=== PATIENT | female | born 1975 | race Caucasian/White ===

== ENCOUNTER 2016-09-21 07:56 | Emergency (ER) | payer BC ==
--- NOTE | 2016-09-21 08:43 | ER Document Report ---
ED General - General Mode of Arrival: Ambulatory Information source: Patient TRAVEL OUTSIDE OF THE [place] IN LAST 30 DAYS: No - HPI Patient complains to provider of: swelling Associated symptoms: Other - See above <PRANEETH LEVY - Last Filed: 09/21/16 09:40> <SARAH VIDES - Last Filed: 09/21/16 20:14> - General Chief Complaint: Feet Swelling Stated Complaint: swelling of feet Time Seen by Provider: 09/21/16 08:18 Notes: Patient is a 40-year-old female, with past medical history including diabetes, who presents to the emergency department complaining of swelling in her feet onset 2 days ago. Patient reports she's been retaining fluid in her feet hands and legs for the past couple days and reports that she has been eating more salt than usual and indulged last night in a very salty meal. Patient states she's been feeling nauseated since then, and also has had shortness of breath with exertion starting this morning. Patient reports she is on her feet most of the day. Patient has no primary care physician (PRANEETH LEVY) - Related Data Allergies/Adverse Reactions: Potassium Clavulanate * [From Augmentin] Allergy (Severe, Verified 09/21/16 08: 00) n and v amoxicillin trihydrate [From Augmentin] Allergy (Verified 09/21/16 08:00) n and v etodolac [From Lodine] Adverse Reaction (Verified 09/21/16 08:00) rash levofloxacin [From Levaquin] Adverse Reaction (Verified 09/21/16 08:00) abd pain nitrofurantoin [From Macrobid] Adverse Reaction (Verified 09/21/16 08:00) chest tight sulfamethoxazole [From Bactrim] Adverse Reaction (Verified 09/21/16 08:00) rash trimethoprim [From Bactrim] Adverse Reaction (Verified 09/21/16 08:00) rash Home Medications: Current Home Medications Multivit-Min/Iron Fum/Folic AC [Raizv-Kcajszu-Qvaylxpy Tablet] 1 each PO DAILY 09/21/16 [History] Past Medical History - General Information source: Patient - Social History Smoking Status: Current Every Day Smoker Frequency of alcohol use: None Drug Abuse: None Family History: Reviewed & Not Pertinent, CVA, DM, Hyperlipidemia, Hypertension , Malignancy, Thyroid Disfunction Patient has suicidal ideation: No Patient has homicidal ideation: No Pulmonary Medical History: Reports: Hx Asthma - inhalers Endocrine Medical History: Reports: Hx Diabetes Mellitus Type 2 - Diet controlled Renal/ Medical History: Reports: Hx Ovarian Cysts Psychiatric Medical History: Reports: Hx Bipolar Disorder Past Surgical History: Reports: Hx Abdominal Surgery, Hx Appendectomy, Hx Gynecologic Surgery - left ovary removed., Hx Hysterectomy - 2015, Hx Oral Surgery, Hx Orthopedic Surgery - LEFT KNEE SURGERY, Hx Tonsillectomy - Immunizations Immunizations up to date: Yes Hx Diphtheria, Pertussis, Tetanus Vaccination: Yes <PRANEETH LEVY - Last Filed: 09/21/16 09:40> Review of Systems - Review of Systems Constitutional: No symptoms reported EENT: No symptoms reported Cardiovascular: No symptoms reported Respiratory: See HPI, Short of breath Gastrointestinal: See HPI, Nausea Genitourinary: No symptoms reported Female Genitourinary: No symptoms reported Musculoskeletal: See HPI, Ankle swelling Skin: No symptoms reported Hematologic/Lymphatic: No symptoms reported Neurological/Psychological: No symptoms reported -: Yes All other systems reviewed and negative <PRANEETH LEVY - Last Filed: 09/21/16 09:40> Physical Exam - Vital signs Interpretation: Normal - General General appearance: Appears well, Alert - HEENT Head: Normocephalic, Atraumatic - Respiratory Respiratory status: No respiratory distress Chest status: Nontender Breath sounds: Normal Chest palpation: Normal - Cardiovascular Rhythm: Regular Heart sounds: Normal auscultation Murmur: No - Abdominal Inspection: Normal Distension: No distension Bowel sounds: Normal Tenderness: Nontender Organomegaly: No organomegaly - Extremities General upper extremity: Normal inspection General lower extremity: Normal inspection. No: Edema - Neurological Neuro grossly intact: Yes Cognition: Normal Orientation: AAOx4 [place] Coma Scale Eye Opening: Spontaneous [place] Coma Scale Verbal: Oriented [place] Coma Scale Motor: Obeys Commands [place] Coma Scale Total: 15 Speech: Normal - Psychological Associated symptoms: Normal affect, Normal mood - Skin Skin Temperature: Warm Skin Moisture: Dry Skin Color: Normal <PRANEETH LEVY - Last Filed: 09/21/16 09:40> Course - Laboratory Result Diagrams: 09/21/16 08:55 <PRANEETH LEVY - Last Filed: 09/21/16 09:40> - Laboratory Result Diagrams: 09/21/16 08:55 <SARAH VIDES - Last Filed: 09/21/16 20:14> - Re-evaluation Re-evalutation: 09/21/16 20:13 the patient presents to the emergency department with the chief complaint of swelling to her lower feet. she says this happens to her when she's on her feet a lot and need the high sodium meal which she did last evening. she dies any chest pain shortness of breath vomiting and dull pain diarrhea fever chills or change of appetite. on examination she is well appearing on toxic with mild swelling of her feet no peripheral edema calf tenderness swelling or cellulitis. negative acute ekg ,chest x-ray and laboratory evaluation including no congestive heart failure or renal insufficiency. patient will be discharged home follow low-sodium diet hydration leg elevation follow up with her primary care physician and discuss reasons for ed return sooner (SARAH VIDES) - Vital Signs Vital signs: Temp Pulse Resp BP Pulse Ox 98.2 F 78 18 106/61 98 09/21/16 10:43 09/21/16 10:43 09/21/16 10:43 09/21/16 10:43 09/21/16 10:43 Discharge <PRANEETH LEVY - Last Filed: 09/21/16 09:40> <SARAH VIDES - Last Filed: 09/21/16 20:14> - Discharge Clinical Impression: peripheral edema Condition: Stable Disposition: HOME, SELF-CARE Additional Instructions: Edema, Peripheral You have swelling in your legs. This is called peripheral edema. It can be caused by "leaky capillaries," inflammation, disease of the leg veins, or excess salt and water in your body. Edema may be a sign of heart, kidney, or liver disease. A medical evaluation can determine if there is a serious underlying cause for your edema. Avoid prolonged standing. If you must sit for a long time, occasionally get up and walk around or elevate your legs. Support stockings can be helpful in limiting swelling. Often diuretic or water pills are used to remove excess salt and water from your body. Call the doctor or return if you develop increased swelling, pain, or redness, shortness of breath, chest pain, or any other significant change. Forms: Return to Work Referrals: [facility] [Provider Group] - Follow up in 3-5 days (Call for appointment to be seen in follow-up in 3-4 days return for increasing worsening or new symptoms) Scribe Attestation: 09/21/16 10:53 I personally performed the services described in the documentation reviewed the documentation recorded by my scribe in my presence and it accurately and completely records my words and actions (SARAH VIDES) Scribe Documentation - Scribe Written by Scribe:: luann Dutta, 09/21/16, 0944 acting as scribe for :: Abdias <PRANEETH LEVY - Last Filed: 09/21/16 09:40>
[2016-09-21 08:49] LABS: APPEARANCE,URINE CLEAR; BILIRUBIN,URINE NEGATIVE (NEGATIVE); GLUCOSE, URINE NEGATIVE (NEGATIVE); KETONES,URINE NEGATIVE (NEGATIVE); LEUKOCYTE ESTERASE,URINE NEGATIVE (NEGATIVE); NITRITE,URINE NEGATIVE (NEGATIVE); PROTEIN,URINE NEGATIVE (NEGATIVE); URINE SPECIFIC GRAVITY 1.008; UROBILINOGEN,URINE NEGATIVE mg/dL (<2.0)
[2016-09-21 09:28] LABS: ANION GAP 10 (5-19); BLOOD UREA NITROGEN 18 mg/dL (7-20); CALCIUM 9.8 mg/dL (8.4-10.2); CARBON DIOXIDE 27 mmol/L (22-30); CHLORIDE 104 mmol/L (98-107); CREATININE RESULT 0.76 mg/dL (0.52-1.25); GLUCOSE 107 mg/dL (75-110); POTASSIUM 4.6 mmol/L (3.6-5.0); SODIUM 140.8 mmol/L (137-145)
[2016-09-21 10:44] VITALS: BP 106/61
== END 2016-09-21 11:04 | disposition home or self-care (01) ==
LOC: ER 07:56
DX: R60.9 Edema, unspecified (principal); R11.0 Nausea; R06.02 Shortness of breath; F17.200 Nicotine dependence, unspecified, uncomplicated; E11.9 Type 2 diabetes mellitus without complications; Z90.710 Acquired absence of both cervix and uterus; Z88.3 Allergy status to other anti-infective agents
CPT/HCPCS: 36415; 71010; 80048; 81001; 81025; 83880; 99283

== ENCOUNTER 2016-11-21 13:22 | Emergency (ER) | payer BC ==
[2016-11-21] MEDS ORDERED: NORMAL SALINE 1000 ML 1,000 ML IV ONE (14:14)
[2016-11-21] MEDS ORDERED: METHYLPREDNISOLONE INJ 125 MG/2 ML SDV IV ONE (14:14)
[2016-11-21] MEDS ORDERED: FAMOTIDINE INJ/PF 20 MG/2 ML SDV IV ONE (14:14)
[2016-11-21] MEDS ORDERED: DIPHENHYDRAMINE HCL 50 MG/ML VIAL IV ONE (14:14)
--- NOTE | 2016-11-21 14:17 | ER Document Report ---
ED Medical Screen (RME) - General Chief Complaint: Allergic Reaction Stated Complaint: POSSIBLE ALLERGIC REACTION Time Seen by Provider: 11/21/16 14:14 Mode of Arrival: Ambulatory Information source: Patient TRAVEL OUTSIDE OF THE [place] IN LAST 30 DAYS: No - HPI Patient complains to provider of: allergic reaction Onset: Just prior to arrival - Pt. was stung on index finger by wasp 1-2 hrs. ago -- has allergy to insect bites -- c/o abdomina cramps, weakness. No rash, SOB - Related Data Allergies/Adverse Reactions: Potassium Clavulanate * [From Augmentin] Allergy (Severe, Verified 11/21/16 13: 25) n and v amoxicillin trihydrate [From Augmentin] Allergy (Verified 11/21/16 13:25) n and v etodolac [From Lodine] Adverse Reaction (Verified 11/21/16 13:25) rash levofloxacin [From Levaquin] Adverse Reaction (Verified 11/21/16 13:25) abd pain nitrofurantoin [From Macrobid] Adverse Reaction (Verified 11/21/16 13:25) chest tight sulfamethoxazole [From Bactrim] Adverse Reaction (Verified 11/21/16 13:25) rash trimethoprim [From Bactrim] Adverse Reaction (Verified 11/21/16 13:25) rash Past Medical History Pulmonary Medical History: Reports: Hx Asthma - inhalers Endocrine Medical History: Reports: Hx Diabetes Mellitus Type 2 - Diet controlled Renal/ Medical History: Reports: Hx Ovarian Cysts. Denies: Hx Peritoneal Dialysis Psychiatric Medical History: Reports: Hx Bipolar Disorder Past Surgical History: Reports: Hx Abdominal Surgery, Hx Appendectomy, Hx Gynecologic Surgery - left ovary removed., Hx Hysterectomy - 2014, Hx Oral Surgery, Hx Orthopedic Surgery - LEFT KNEE SURGERY, Hx Tonsillectomy - Immunizations Immunizations up to date: Yes Hx Diphtheria, Pertussis, Tetanus Vaccination: Yes Physical Exam - Vital signs Vitals: Temp Pulse Resp BP Pulse Ox 97.7 F 93 22 H 131/89 H 98 11/21/16 13:25 11/21/16 13:25 11/21/16 13:25 11/21/16 13:25 11/21/16 13:25 Course - Vital Signs Vital signs: Temp Pulse Resp BP Pulse Ox 97.7 F 93 22 H 131/89 H 98 11/21/16 13:25 11/21/16 13:25 11/21/16 13:25 11/21/16 13:25 11/21/16 13:25
--- NOTE | 2016-11-21 15:01 | ER Document Report ---
ED Allergic Reaction - General Chief Complaint: Allergic Reaction Stated Complaint: POSSIBLE ALLERGIC REACTION Time Seen by Provider: 11/21/16 14:14 Mode of Arrival: Ambulatory Notes: 41 yo female stung on right index finger , ulnar side of nailbed at 1 pm today. finger started to swell. took benadryl 25mg at home. TRAVEL OUTSIDE OF THE [place] IN LAST 30 DAYS: No - Related Data Allergies/Adverse Reactions: Potassium Clavulanate * [From Augmentin] Allergy (Severe, Verified 11/21/16 13: 25) n and v amoxicillin trihydrate [From Augmentin] Allergy (Verified 11/21/16 13:25) n and v etodolac [From Lodine] Adverse Reaction (Verified 11/21/16 13:25) rash levofloxacin [From Levaquin] Adverse Reaction (Verified 11/21/16 13:25) abd pain nitrofurantoin [From Macrobid] Adverse Reaction (Verified 11/21/16 13:25) chest tight sulfamethoxazole [From Bactrim] Adverse Reaction (Verified 11/21/16 13:25) rash trimethoprim [From Bactrim] Adverse Reaction (Verified 11/21/16 13:25) rash Past Medical History - General Information source: Patient - Social History Smoking Status: Current Every Day Smoker Chew tobacco use (# tins/day): No Frequency of alcohol use: Occasional Drug Abuse: None Family History: Reviewed & Not Pertinent, CVA, DM, Hyperlipidemia, Hypertension , Malignancy, Thyroid Disfunction Pulmonary Medical History: Reports: Hx Asthma - inhalers Endocrine Medical History: Reports: Hx Diabetes Mellitus Type 2 - Diet controlled Renal/ Medical History: Reports: Hx Ovarian Cysts. Denies: Hx Peritoneal Dialysis Psychiatric Medical History: Reports: Hx Bipolar Disorder Past Surgical History: Reports: Hx Abdominal Surgery, Hx Appendectomy, Hx Gynecologic Surgery - left ovary removed., Hx Hysterectomy - 2015, Hx Oral Surgery, Hx Orthopedic Surgery - LEFT KNEE SURGERY, Hx Tonsillectomy - Immunizations Immunizations up to date: Yes Hx Diphtheria, Pertussis, Tetanus Vaccination: Yes Review of Systems - Review of Systems Constitutional: No symptoms reported EENT: No symptoms reported Cardiovascular: No symptoms reported Respiratory: No symptoms reported Gastrointestinal: No symptoms reported Genitourinary: No symptoms reported Female Genitourinary: No symptoms reported Musculoskeletal: No symptoms reported Skin: See HPI Hematologic/Lymphatic: No symptoms reported Neurological/Psychological: No symptoms reported Physical Exam - Vital signs Vitals: Temp Pulse Resp BP Pulse Ox 97.7 F 93 22 H 131/89 H 98 11/21/16 13:25 11/21/16 13:25 11/21/16 13:25 11/21/16 13:25 11/21/16 13:25 Interpretation: Normal - General General appearance: Appears well, Alert In distress: None - HEENT Head: Normocephalic, Atraumatic Eyes: Normal Pupils: PERRL Mucous membranes: Normal Pharynx: Normal Neck: Supple. No: Lymphadenopathy - Respiratory Respiratory status: No respiratory distress Chest status: Nontender Breath sounds: Normal Chest palpation: Normal - Cardiovascular Rhythm: Regular Heart sounds: Normal auscultation Murmur: No - Abdominal Inspection: Normal Distension: No distension Bowel sounds: Normal Tenderness: Nontender Organomegaly: No organomegaly - Back Back: Normal, Nontender - Extremities General upper extremity: Normal inspection, Nontender, Normal color, Normal ROM , Normal temperature General lower extremity: Normal inspection, Nontender, Normal color, Normal ROM , Normal temperature, Normal weight bearing. No: Wendi's sign Notes: mild swelling to right index finger, pink, no stinger at nailbed, N/V intact, FROM - Neurological Neuro grossly intact: Yes Cognition: Normal Orientation: AAOx4 [place] Coma Scale Eye Opening: Spontaneous [place] Coma Scale Verbal: Oriented [place] Coma Scale Motor: Obeys Commands [place] Coma Scale Total: 15 Speech: Normal Motor strength normal: LUE, RUE, LLE, RLE Sensory: Normal - Psychological Associated symptoms: Normal affect, Normal mood - Skin Skin Temperature: Warm Skin Moisture: Dry Skin Color: Normal Notes: see above Course - Vital Signs Vital signs: Temp Pulse Resp BP Pulse Ox 98.2 F 77 18 102/66 100 11/21/16 15:19 11/21/16 15:19 11/21/16 15:19 11/21/16 15:19 11/21/16 15:19 Discharge - Discharge Clinical Impression: right index finger bee sting Local reaction to bee sting Qualifiers: Encounter type: initial encounter Injury intent: undetermined intent Qualified Code(s): T63.444A - Toxic effect of venom of bees, undetermined, initial encounter Condition: Good Disposition: HOME, SELF-CARE Instructions: Insect Sting ([facility]), Swollen Insect Bite or Sting ([facility]), Use of Diphenhydramine, Steroid Medication, Acid-Suppressing Medication ([facility]) Additional Instructions: Lhyx-gku-jcyqkmr Pepcid 20 mg twice a day for 1 week over the counter Benadryl 25-50 mg every 4-6 hours for itching for 1 week EpiPen refill Keep the finger elevated above the heart Steroids until gone return to er any concerns Please complete the patient satisfaction survey if you get one, and return it.. If you do not receive a survey, then you can go to the [facility] website, [email or web address] and place your comments about your very good care. Thank you very much. It was a pleasure being your medical provider today. Prescriptions: Epinephrine [Epipen 2-Redd] 0.3 mg IM ONCE PRN #1 ml PRN Reason: Prednisone [Deltasone 10 mg Tablet] 10 mg PO ASDIR PRN #15 tablet PRN Reason:
[2016-11-21 15:39] VITALS: BP 102/66
== END 2016-11-21 15:19 | disposition home or self-care (01) ==
LOC: ER 13:22
DX: T63.441A Toxic effect of venom of bees, accidental (unintentional), initial encounter (principal); M79.89 Other specified soft tissue disorders; F17.200 Nicotine dependence, unspecified, uncomplicated; J45.909 Unspecified asthma, uncomplicated; E11.9 Type 2 diabetes mellitus without complications; Z88.0 Allergy status to penicillin
CPT/HCPCS: 99283; 96374; 96375; J1200; J2930; S0028

== ENCOUNTER → 2017-07-27 | Outpatient (CLI) | payer BC | LOC: OD 17:16 | PROVIDERS: ATTEND Nurse Practitioner Acute Care | DX: R30.0 Dysuria (principal) | CPT/HCPCS: 87086 ==

== ENCOUNTER 2017-08-11 17:54 | Emergency (ER) | payer BC ==
--- NOTE | 2017-08-11 20:06 | ER Document Report ---
ED Medical Screen (RME) - General Chief Complaint: Abdominal Pain Stated Complaint: STOMACH PAIN Time Seen by Provider: 08/11/17 19:58 Notes: RME DISCLOSURE I have seen this patient as part of a Rapid Medical Evaluation and, if applicable, placed any initially appropriate orders. The patient will be seen and fully evaluated, including a full history and physical exam, by a provider ( in Main ED or Fast Track) when a room becomes available. 41-year-old female here with complaints of pain underneath her left shoulder blade that started yesterday and was worsened with deep breathing. Today she has started to have midsternal chest pain as well as pain in her upper abdomen worse with breathing. She states that she does not have any abdominal pain as long as she holds her breath. The pain is also worse after eating foods, approximately 15 minutes later. She has not had nausea vomiting but feels feverish. Her son had gallbladder removed at age 8. She has no prior history of DVT/PE, prolonged immobilization, exogenous estrogen use. EXAM Right/left upper quadrant, epigastric tenderness to palpation TRAVEL OUTSIDE OF THE [place] IN LAST 30 DAYS: No - Related Data Allergies/Adverse Reactions: Potassium Clavulanate * [From Augmentin] Allergy (Severe, Verified 11/21/16 13: 25) n and v amoxicillin trihydrate [From Augmentin] Allergy (Verified 11/21/16 13:25) n and v etodolac [From Lodine] Adverse Reaction (Verified 11/21/16 13:25) rash levofloxacin [From Levaquin] Adverse Reaction (Verified 11/21/16 13:25) abd pain nitrofurantoin [From Macrobid] Adverse Reaction (Verified 11/21/16 13:25) chest tight sulfamethoxazole [From Bactrim] Adverse Reaction (Verified 11/21/16 13:25) rash trimethoprim [From Bactrim] Adverse Reaction (Verified 11/21/16 13:25) rash Past Medical History - Social History Frequency of alcohol use: Occasional Drug Abuse: None Pulmonary Medical History: Reports: Hx Asthma - inhalers Endocrine Medical History: Reports: Hx Diabetes Mellitus Type 2 - Diet controlled Renal/ Medical History: Reports: Hx Ovarian Cysts. Denies: Hx Peritoneal Dialysis Psychiatric Medical History: Reports: Hx Bipolar Disorder Past Surgical History: Reports: Hx Abdominal Surgery, Hx Appendectomy, Hx Gynecologic Surgery - left ovary removed., Hx Hysterectomy, Hx Oral Surgery, Hx Orthopedic Surgery - LEFT KNEE SURGERY, Hx Tonsillectomy - Immunizations Immunizations up to date: Yes Hx Diphtheria, Pertussis, Tetanus Vaccination: Yes Physical Exam - Vital signs Vitals: Temp Pulse Resp BP Pulse Ox 98.4 F 89 18 119/72 98 08/11/17 18:07 08/11/17 18:07 08/11/17 18:07 08/11/17 18:07 08/11/17 18:07 Course - Vital Signs Vital signs: Temp Pulse Resp BP Pulse Ox 98.4 F 89 18 119/72 98 08/11/17 18:07 08/11/17 18:07 08/11/17 18:07 08/11/17 18:07 08/11/17 18:07
[2017-08-11 20:28] LABS: ABSOLUTE EOSINOPHILS # (AUTO) 0.2 10^3/uL (0.0-0.6); ABSOLUTE LYMPHOCYTES (AUTO) 3.5 10^3/uL (0.5-4.7); ABSOLUTE MONOCYTES (AUTO) 0.3 10^3/uL (0.1-1.4); ABSOLUTE NEUT (AUTO) 4.1 10^3/uL (1.7-8.2); BASOPHILS % (AUTO) 0.4 % (0-2); EOSINOPHILS % (AUTO) 2.1 % (0-6); HEMATOCRIT 42.4 % (36.0-47.0); HEMOGLOBIN 14.5 g/dL (12.0-15.5); LYMPHOCYTES % (AUTO) 43.2 % (13-45); MEAN CORPUSCULAR HGB CONC 34.3 g/dL (32.0-36.0); MEAN CORPUSCULAR VOLUME 94 fl (80-97); MONOCYTES % (AUTO) 4.2 % (3-13); PLATELET COUNT 323 10^3/uL (150-450); RED BLOOD COUNT 4.53 10^6/uL (3.72-5.28); RED CELL DISTRIBUTION WIDTH 12.7 % (11.5-14.0); SEGMENTED NEUTROPHILS % (AUTO) 50.1 % (42-78); TOTAL CELLS COUNTED % (AUTO) 100 %; WHITE BLOOD COUNT 8.1 10^3/uL (4.0-10.5)
[2017-08-11 20:50] LABS: ALANINE AMINOTRANSFERASE 71 U/L (9-52); ALBUMIN 4.5 g/dL (3.5-5.0); ALKALINE PHOSPHATASE 71 U/L (38-126); ANION GAP 9 (5-19); ASPARTATE AMINO TRANSFERASE 47 U/L (14-36); BILIRUBIN,DIRECT 0.3 mg/dL (0.0-0.4); BILIRUBIN,TOTAL 0.4 mg/dL (0.2-1.3); BLOOD UREA NITROGEN 9 mg/dL (7-20); CALCIUM 9.9 mg/dL (8.4-10.2); CARBON DIOXIDE 28 mmol/L (22-30); CHLORIDE 105 mmol/L (98-107); GLUCOSE 94 mg/dL (75-110); LIPASE 73.8 U/L (23-300); TOTAL PROTEIN 7.9 g/dL (6.3-8.2)
--- NOTE | 2017-08-11 23:00 | RADIOLOGY REPORT (SQ) ---
EXAM DESCRIPTION: U/S ABDOMEN LIMITED W/O DOP COMPLETED DATE/TIME: 08/11/2017 9:47 pm REASON FOR STUDY: RUQ pain after eating; cholecystitis? COMPARISON: None. TECHNIQUE: Dynamic and static grayscale images acquired of the right upper quadrant and recorded on PACS. Additional selected color Doppler and spectral images recorded. LIMITATIONS: Study limited due to acoustical interference from fat or from air in the bowel. FINDINGS: PANCREAS: Visualized pancreas and duct normal. Parts poorly seen secondary to acoustical interference from fat or from air in the bowel. LIVER: No masses. Increased echotexture consistent with fatty infiltration. LIVER VASCULATURE: Normal directional flow of the main portal vein and hepatic veins. GALLBLADDER: Parts poorly seen secondary to acoustical interference from fat or from air in the bowel .No stones identified. Normal wall thickness. No pericholecystic fluid. ULTRASOUND-DETECTED ROMERO'S SIGN: Positive. INTRAHEPATIC DUCTS AND COMMON DUCT: Parts poorly seen secondary to acoustical interference from fat o r from air in the bowel. INFERIOR VENA CAVA: Normal flow. AORTA: No aneurysm. RIGHT KIDNEY: Normal size. Normal echogenicity. No solid or suspicious masses. No hydronephrosis. No calcifications. PERITONEAL CAVITY AND RIGHT PLEURAL SPACE: No ascites or effusions. OTHER: No other significant finding. IMPRESSION: Fatty infiltration of the liver. Otherwise no acute inflammatory changes or gallstones. Sonographic Romero sign reported as positive. TECHNICAL DOCUMENTATION: JOB ID: [id number] [place]-72 2010 [employer]- All Rights Reserved Reading location - IP/workstation name: [email or web address]
--- NOTE | 2017-08-11 23:08 | EKG REPORT ---
SEVERITY:- NORMAL ECG - SINUS RHYTHM : Confirmed by: Corinna Jha 11-Aug-2017 23:07:03
--- NOTE | 2017-08-11 23:39 | RADIOLOGY REPORT (SQ) ---
EXAM DESCRIPTION: CTA CHEST COMPLETED DATE/TIME: 08/11/2017 10:59 pm REASON FOR STUDY: L scapula pain/misternal CP w breathing; PE? COMPARISON: None. TECHNIQUE: CT scan of the chest performed using helical scanning technique with dynamic intravenous contrast injection. Images reviewed with lung, soft tissue and bone windows. Reconstructed coronal and sagittal MPR images reviewed. Additional 3 dimensional post-processing performed to develop Maximal Intensity Projection images (LA P). All images stored on PACS. All CT scanners at this facility use dose modulation, iterative reconstruction, and/or weight based d osing when appropriate to reduce radiation dose to as low as reasonably achievable (ALARA). [facility]: Dose Right [facility]: CareDose [facility]: Dose Right [facility]: Teradose 4D [facility]: [employer] CONTRAST TYPE AND DOSE: contrast/concentration: Isovue 370.00 mg/ml; Total Contrast Delivered: 100.0 ml; Total Saline Delivered: 40.1 ml Contrast bolus optimized for the pulmonary arteries. Not diagnostic for the aorta. RENAL FUNCTION: GFR > 60. RADIATION DOSE: CT Rad equipment meets quality standard of care and radiation dose reduction techniq ues were employed. CTDIvol: 14.9 - 24.2 mGy. DLP: 889 mGy-cm. . LIMITATIONS: None. FINDINGS: LUNGS AND PLEURA: No masses, infiltrates, pneumothorax. No pleural effusions, calcificati ons. AORTA AND GREAT VESSELS: No aneurysm. Contrast bolus not optimized for the aorta. HEART: No pericardial effusion. No significant coronary artery calcifications. PULMONARY ARTERIES: No emboli visualized in the main pulmonary arteries or the segmental branches. HILAR AND MEDIASTINAL STRUCTURES: No identified masses or abnormal nodes. HARDWARE: None in the chest. UPPER ABDOMEN: No significant findings. Limited exam. THYROID AND OTHER SOFT TISSUES: No masses. No adenopathy. BONES: No acute or significant finding. 3D MIPS: Confirm above findings. OTHER: No other significant finding. IMPRESSION: NORMAL CTA OF THE CHEST. NO PULMONARY EMBOLI. COMMENT: Quality ID # [id number]: Final reports with documentation of one or more dose reduction techniques (e.g., Automated exposure control, adjustment of the mA and/or kV according to patient size, use of iterative reconstruction technique) TECHNICAL DOCUMENTATION: JOB ID: [id number] [place]-72 2010 [employer]- All Rights Reserved Reading location - IP/workstation name: [employer]
--- NOTE | 2017-08-12 00:04 | ER Document Report ---
ED General - General Chief Complaint: Abdominal Pain Stated Complaint: STOMACH PAIN Time Seen by Provider: 08/11/17 19:58 Mode of Arrival: Ambulatory Information source: Patient, [facility] Records Notes: 41-year-old female here with complaints of pain underneath her left shoulder blade that started yesterday and was worsened with deep breathing. Today she has started to have epigastric abdominal pain worse with breathing. She states that she does not have any abdominal pain as long as she holds her breath. The pain is also worse after eating foods. She does admit to a poor diet with lots of fatty food since . She has not had nausea or vomiting. She reports subjective fevers with chills. Her son had gallbladder removed at age 8. She has no prior history of DVT/PE, prolonged immobilization, exogenous estrogen use. She tried taking Tylenol without relief. TRAVEL OUTSIDE OF THE [place] IN LAST 30 DAYS: No - HPI Onset: Yesterday Onset/Duration: Constant - States pain initially intermittent but has been constant all day. She describes it as a aching burning pain. Quality of pain: Achy, Burning Severity: Mild Associated symptoms: denies: Chest pain, Productive cough, Diarrhea, Headache, Nausea, Vomiting, Shortness of breath Exacerbated by: Food Relieved by: Denies Similar symptoms previously: No Recently seen / treated by doctor: No - Related Data Allergies/Adverse Reactions: Potassium Clavulanate * [From Augmentin] Allergy (Severe, Verified 11/21/16 13: 25) n and v amoxicillin trihydrate [From Augmentin] Allergy (Verified 11/21/16 13:25) n and v etodolac [From Lodine] Adverse Reaction (Verified 11/21/16 13:25) rash levofloxacin [From Levaquin] Adverse Reaction (Verified 11/21/16 13:25) abd pain nitrofurantoin [From Macrobid] Adverse Reaction (Verified 11/21/16 13:25) chest tight sulfamethoxazole [From Bactrim] Adverse Reaction (Verified 11/21/16 13:25) rash trimethoprim [From Bactrim] Adverse Reaction (Verified 11/21/16 13:25) rash Past Medical History - General Information source: Patient - Social History Smoking Status: Current Every Day Smoker Frequency of alcohol use: Occasional Drug Abuse: None Family History: Reviewed & Not Pertinent, CVA, DM, Hyperlipidemia, Hypertension , Malignancy, Thyroid Disfunction Patient has suicidal ideation: No Patient has homicidal ideation: No Pulmonary Medical History: Reports: Hx Asthma - inhalers Endocrine Medical History: Reports: Hx Diabetes Mellitus Type 2 - Diet controlled Renal/ Medical History: Reports: Hx Ovarian Cysts. Denies: Hx Peritoneal Dialysis Psychiatric Medical History: Reports: Hx Bipolar Disorder Past Surgical History: Reports: Hx Abdominal Surgery, Hx Appendectomy, Hx Gynecologic Surgery - left ovary removed., Hx Hysterectomy, Hx Oral Surgery, Hx Orthopedic Surgery - LEFT KNEE SURGERY, Hx Tonsillectomy - Immunizations Immunizations up to date: Yes Hx Diphtheria, Pertussis, Tetanus Vaccination: Yes Review of Systems - Review of Systems Constitutional: Fever - Subjective EENT: No symptoms reported Cardiovascular: Chest pain - epigastric Respiratory: Hurts to breathe Gastrointestinal: Abdominal pain. denies: Nausea, Vomiting, Constipation, Blood streaked bowels, Black stools Genitourinary: denies: Dysuria, Frequency Female Genitourinary: denies: Vaginal discharge Musculoskeletal: Back pain Skin: No symptoms reported Hematologic/Lymphatic: No symptoms reported Neurological/Psychological: No symptoms reported Physical Exam - Vital signs Vitals: Temp Pulse Resp BP Pulse Ox 98.4 F 89 18 119/72 98 08/11/17 18:07 08/11/17 18:07 08/11/17 18:07 08/11/17 18:07 08/11/17 18:07 Interpretation: Normal. No: Hypertensive, Tachypneic, Febrile - General General appearance: Appears well, Alert In distress: None - HEENT Head: Normocephalic, Atraumatic Eyes: Normal Pupils: PERRL - Respiratory Respiratory status: No respiratory distress Chest status: Nontender Breath sounds: Normal Chest palpation: Normal - Cardiovascular Rhythm: Regular Heart sounds: Normal auscultation Murmur: No Pulses: Normal: Radial - Abdominal Inspection: Normal Distension: No distension Bowel sounds: Normal Tenderness: Tender - Upper quadrant tenderness, Romero's sign Organomegaly: No organomegaly - Back Back: Normal, Nontender. No: CVA tenderness - Extremities General upper extremity: Normal inspection, Nontender, Normal color, Normal ROM , Normal temperature. No: Edema General lower extremity: Normal inspection, Nontender, Normal color, Normal ROM , Normal temperature, Normal weight bearing. No: Edema, Wendi's sign - Neurological Neuro grossly intact: Yes Cognition: Normal Orientation: AAOx4 Nataliya Coma Scale Eye Opening: Spontaneous [place] Coma Scale Verbal: Oriented [place] Coma Scale Motor: Obeys Commands [place] Coma Scale Total: 15 Speech: Normal Motor strength normal: LUE, RUE, LLE, RLE Sensory: Normal - Psychological Associated symptoms: Normal affect, Normal mood - Skin Skin Temperature: Warm Skin Moisture: Dry Skin Color: Normal Skin irregularity: negative: Rash Course - Re-evaluation Re-evalutation: Laboratory 08/11/17 08/11/17 08/11/17 20:20 20:20 20:20 WBC 8.1 RBC 4.53 Hgb 14.5 Hct 42.4 MCV 94 MCH 32.0 MCHC 34.3 RDW 12.7 Plt Count 323 Seg Neutrophils % 50.1 Lymphocytes % 43.2 Monocytes % 4.2 Eosinophils % 2.1 Basophils % 0.4 Absolute Neutrophils 4.1 Absolute Lymphocytes 3.5 Absolute Monocytes 0.3 Absolute Eosinophils 0.2 Absolute Basophils 0.0 Sodium 142.0 Potassium 4.0 Chloride 105 Carbon Dioxide 28 Anion Gap 9 BUN 9 Creatinine 0.66 Est GFR ( Amer) > 60 Est GFR (Non-Af Amer) > 60 Glucose 94 Calcium 9.9 Total Bilirubin 0.4 Direct Bilirubin 0.3 Neonat Total Bilirubin Not Reportable Neonat Direct Bilirubin Not Reportable Neonat Indirect Bili Not Reportable AST 47 H ALT 71 H Alkaline Phosphatase 71 Troponin I < 0.012 Total Protein 7.9 Albumin 4.5 Lipase 73.8 Abdomen Ultrasound 08/11/17 20:03 IMPRESSION: Fatty infiltration of the liver. Otherwise no acute inflammatory changes or gallstones. Sonographic Romero sign reported as positive. Chest/Abdomen CTA 08/11/17 20:03 IMPRESSION: NORMAL CTA OF THE CHEST. NO PULMONARY EMBOLI. 08/12/17 00:16 41-year-old female with history of asthma, hypothyroid, diet-controlled diabetes presents with 1 day of left shoulder and right upper quadrant pain. Upon arrival vital signs reviewed and within normal limits. Patient is afebrile , normotensive and not hypoxic. She does not appear toxic or dehydrated. She is in no acute distress. EKG was obtained and showed the patient to be in normal sinus rhythm at a rate of 83. There are no ST elevation or T-wave inversions. Ultrasound of the gallbladder was obtained and showed no evidence of cholecystitis or cholelithiasis. CTA of the chest was obtained and had no evidence of pulmonary embolism. RME reviewed which noted chest pain, I did clarify with the patient if she was experiencing chest pain and she states she was having epigastric pain. Cardiac enzymes within normal limits. CBC is without leukocytosis or anemia. BMP is without electrolyte abnormalities and she has normal renal function. She does have a very mild elevation in her ALT and AST. Could be secondary to fatty liver seen on ultrasound. Smoking cessation advised. Discussed proper diet and that the patient should avoid fast and fatty foods. Patient is tolerating fluids prior to discharge. She is comfortable with discharge home. 08/12/17 19:19 - Vital Signs Vital signs: Temp Pulse Resp BP Pulse Ox 98.4 F 76 18 118/74 100 08/11/17 18:07 08/12/17 00:49 08/12/17 00:49 08/12/17 00:49 08/12/17 00:49 - Laboratory Result Diagrams: 08/11/17 20:20 08/11/17 20:20 Laboratory results interpreted by me: 08/11/17 20:20 AST 47 H ALT 71 H Discharge - Discharge Clinical Impression: Right upper quadrant abdominal pain Back pain Qualifiers: Back pain location: thoracic back pain Chronicity: acute Back pain laterality: left Qualified Code(s): M54.6 - Pain in thoracic spine Condition: Good Disposition: HOME, SELF-CARE Instructions: Abdominal Pain ([facility]), Low-Fat Diet ([facility]) Additional Instructions: Her imaging today shows no evidence of gallstones, inflammation of your gallbladder, a clot in your lung or any other disease of your lung. Please avoid fatty foods. Please consider stopping smoking. Pleas obtain primary care. Prescriptions: Ibuprofen [Motrin 600 mg Tablet] 600 mg PO Q8HP PRN #20 tablet PRN Reason: Forms: Smoking Cessation Education, Return to Work
[2017-08-12 00:50] VITALS: BP 118/74
== END 2017-08-12 00:46 | disposition home or self-care (01) ==
LOC: ER 17:54
DX: R10.11 Right upper quadrant pain (principal); M54.6 Pain in thoracic spine; F17.200 Nicotine dependence, unspecified, uncomplicated; E11.9 Type 2 diabetes mellitus without complications; Z90.710 Acquired absence of both cervix and uterus; Z88.3 Allergy status to other anti-infective agents; Z88.0 Allergy status to penicillin
CPT/HCPCS: 36415; 71275; 76705; 80053; 83690; 84484; 85025; 93005; 93010; 99284

== ENCOUNTER 2017-10-18 18:12 | Emergency (ER) | payer OTHER, BC ==
[2017-10-18 18:18] VITALS: BP 141/91
--- NOTE | 2017-10-18 18:53 | ER Document Report ---
ED General - General Chief Complaint: Insect Bite Stated Complaint: POSSIBLE INSECT BITE Time Seen by Provider: 10/18/17 18:51 Mode of Arrival: Ambulatory Information source: Patient Notes: 41 yr old female presents with complaints of insect bites ot her legs. pt notes possible 2 bite ot the right leg, notes she took 50 mg benadryl and symptoms improved, intermittently she feels tightening of her throat. pt notes no sob, she has an epipen but it has . TRAVEL OUTSIDE OF THE [place] IN LAST 30 DAYS: No - HPI Onset: This afternoon Onset/Duration: Sudden Quality of pain: No pain Severity: Mild Pain Level: Denies Associated symptoms: Other Exacerbated by: Denies Relieved by: Denies Similar symptoms previously: No Recently seen / treated by doctor: No - Related Data Allergies/Adverse Reactions: Potassium Clavulanate * [From Augmentin] Allergy (Severe, Verified 11/21/16 13: 25) n and v amoxicillin trihydrate [From Augmentin] Allergy (Verified 11/21/16 13:25) n and v etodolac [From Lodine] Adverse Reaction (Verified 11/21/16 13:25) rash levofloxacin [From Levaquin] Adverse Reaction (Verified 11/21/16 13:25) abd pain nitrofurantoin [From Macrobid] Adverse Reaction (Verified 11/21/16 13:25) chest tight sulfamethoxazole [From Bactrim] Adverse Reaction (Verified 11/21/16 13:25) rash trimethoprim [From Bactrim] Adverse Reaction (Verified 11/21/16 13:25) rash Past Medical History - Social History Smoking Status: Current Every Day Smoker Cigarette use (# per day): Yes Chew tobacco use (# tins/day): No Smoking Education Provided: No Frequency of alcohol use: None Drug Abuse: None Family History: Reviewed & Not Pertinent, CVA, DM, Hyperlipidemia, Hypertension , Malignancy, Thyroid Disfunction Patient has suicidal ideation: No Patient has homicidal ideation: No Pulmonary Medical History: Reports: Hx Asthma - inhalers Endocrine Medical History: Reports: Hx Diabetes Mellitus Type 2 - Diet controlled Renal/ Medical History: Reports: Hx Ovarian Cysts. Denies: Hx Peritoneal Dialysis Psychiatric Medical History: Reports: Hx Bipolar Disorder Past Surgical History: Reports: Hx Abdominal Surgery, Hx Appendectomy, Hx Gynecologic Surgery - left ovary removed., Hx Hysterectomy, Hx Oral Surgery, Hx Orthopedic Surgery - LEFT KNEE SURGERY, Hx Tonsillectomy - Immunizations Immunizations up to date: Yes Hx Diphtheria, Pertussis, Tetanus Vaccination: Yes Review of Systems - Review of Systems Constitutional: No symptoms reported EENT: Throat swelling Cardiovascular: No symptoms reported Respiratory: No symptoms reported Gastrointestinal: No symptoms reported Genitourinary: No symptoms reported Female Genitourinary: No symptoms reported Musculoskeletal: No symptoms reported Skin: Rash Hematologic/Lymphatic: No symptoms reported Neurological/Psychological: No symptoms reported -: Yes All other systems reviewed and negative Physical Exam - Vital signs Vitals: Temp Pulse Resp BP Pulse Ox 97.6 F 87 16 141/91 H 100 10/18/17 18:17 10/18/17 18:17 10/18/17 18:17 10/18/17 18:17 10/18/17 18:17 Interpretation: Normal - General General appearance: Appears well, Alert - HEENT Head: Normocephalic, Atraumatic Eyes: Normal Pupils: PERRL - Respiratory Respiratory status: No respiratory distress Chest status: Nontender Breath sounds: Normal Chest palpation: Normal - Cardiovascular Rhythm: Regular Heart sounds: Normal auscultation Murmur: No - Abdominal Inspection: Normal Distension: No distension Bowel sounds: Normal Tenderness: Nontender Organomegaly: No organomegaly - Back Back: Normal, Nontender - Extremities General upper extremity: Normal inspection, Nontender, Normal color, Normal ROM , Normal temperature General lower extremity: Normal inspection, Nontender, Normal color, Normal ROM , Normal temperature, Normal weight bearing. No: Wendi's sign - Neurological Neuro grossly intact: Yes Cognition: Normal Orientation: AAOx4 Nataliya Coma Scale Eye Opening: Spontaneous Nataliya Coma Scale Verbal: Oriented Nataliya Coma Scale Motor: Obeys Commands Nataliya Coma Scale Total: 15 Speech: Normal Motor strength normal: LUE, RUE, LLE, RLE Sensory: Normal - Skin Skin Temperature: Warm Notes: 2 small bites noted t othe right lower extrmeit,y no hives, no rash noted. Course - Re-evaluation Re-evalutation: 10/18/17 20:52 pt has absolutely no signs of any systemic allergic reaction. overall she looks well will dc home with steroids and epipen as needed pt otherwise has been without any life threatening reaction for over 6 hours and is stable for discharge home. - Vital Signs Vital signs: Temp Pulse Resp BP Pulse Ox 97.6 F 87 16 141/91 H 100 10/18/17 18:17 10/18/17 18:17 10/18/17 18:17 10/18/17 18:17 10/18/17 18:17 Discharge - Discharge Clinical Impression: Allergic reaction Qualifiers: Encounter type: initial encounter Qualified Code(s): T78.40XA - Allergy, unspecified, initial encounter Condition: Stable Disposition: HOME, SELF-CARE Instructions: Acute Allergic Reaction ([facility]) Prescriptions: Epinephrine [Epipen] 0.3 mg IM ASDIR PRN #1 auto.injct PRN Reason: Prednisone [Deltasone 20 mg Tablet] 3 tab PO DAILY 5 Days tablet Forms: Return to Work
== END 2017-10-18 19:01 | disposition home or self-care (01) ==
LOC: ER 18:12
DX: T78.40XA Allergy, unspecified, initial encounter (principal); S80.861A Insect bite (nonvenomous), right lower leg, initial encounter; W57.XXXA Bitten or stung by nonvenomous insect and other nonvenomous arthropods, initial encounter; F17.210 Nicotine dependence, cigarettes, uncomplicated; J45.909 Unspecified asthma, uncomplicated; E11.9 Type 2 diabetes mellitus without complications
CPT/HCPCS: 99281

== ENCOUNTER 2018-06-05 12:20 | Emergency (ER) | payer BC ==
[2018-06-05 12:34] VITALS: BP 124/73
--- NOTE | 2018-06-05 12:48 | ER Document Report ---
ED Medical Screen (RME) - General Chief Complaint: Flank Pain Stated Complaint: BACK PAIN/DIZZY Time Seen by Provider: 06/05/18 12:40 Notes: 42-year-old female patient who states she is a borderline diabetic reports bilateral mid back pain, a "fruity taste in my mouth" and feeling dizzy and nauseous this morning. She states yesterday she took apple cider vinegar for the problem, and tried it again today and the fruity taste did not go away. She states the apple cider vinegar is supposed to lower blood sugar. She is not on any regular medications at this time. I have greeted and performed a rapid initial assessment of this patient. A comprehensive ED assessment and evaluation of the patient, analysis of test results and completion of the medical decision making process will be conducted by additional ED providers. TRAVEL OUTSIDE OF THE [place] IN LAST 30 DAYS: No - Related Data Allergies/Adverse Reactions: Potassium Clavulanate * [From Augmentin] Allergy (Severe, Verified 11/21/16 13:25) n and v amoxicillin trihydrate [From Augmentin] Allergy (Verified 11/21/16 13:25) n and v etodolac [From Lodine] Adverse Reaction (Verified 11/21/16 13:25) rash levofloxacin [From Levaquin] Adverse Reaction (Verified 11/21/16 13:25) abd pain nitrofurantoin [From Macrobid] Adverse Reaction (Verified 11/21/16 13:25) chest tight sulfamethoxazole [From Bactrim] Adverse Reaction (Verified 11/21/16 13:25) rash trimethoprim [From Bactrim] Adverse Reaction (Verified 11/21/16 13:25) rash Past Medical History Pulmonary Medical History: Reports: Hx Asthma - inhalers Endocrine Medical History: Reports: Hx Diabetes Mellitus Type 2 - Diet controlled Renal/ Medical History: Reports: Hx Ovarian Cysts. Denies: Hx Peritoneal Dialysis Psychiatric Medical History: Reports: Hx Bipolar Disorder Past Surgical History: Reports: Hx Abdominal Surgery, Hx Appendectomy, Hx Gynecologic Surgery - left ovary removed., Hx Hysterectomy, Hx Oral Surgery, Hx Orthopedic Surgery - LEFT KNEE SURGERY, Hx Tonsillectomy - Immunizations Immunizations up to date: Yes Hx Diphtheria, Pertussis, Tetanus Vaccination: Yes Physical Exam - Vital signs Vitals: Temp Pulse Resp BP Pulse Ox 98.1 F 90 18 124/73 99 06/05/18 12:33 06/05/18 12:33 06/05/18 12:33 06/05/18 12:33 06/05/18 12:33 Course - Vital Signs Vital signs: Temp Pulse Resp BP Pulse Ox 98.1 F 90 18 124/73 99 06/05/18 12:33 06/05/18 12:33 06/05/18 12:33 06/05/18 12:33 06/05/18 12:33
[2018-06-05 13:29] LABS: ABSOLUTE EOSINOPHILS # (AUTO) 0.2 10^3/uL (0.0-0.6); ABSOLUTE LYMPHOCYTES (AUTO) 2.6 10^3/uL (0.5-4.7); ABSOLUTE MONOCYTES (AUTO) 0.4 10^3/uL (0.1-1.4); ABSOLUTE NEUT (AUTO) 3.4 10^3/uL (1.7-8.2); BASOPHILS % (AUTO) 0.4 % (0-2); EOSINOPHILS % (AUTO) 2.5 % (0-6); HEMATOCRIT 44.5 % (36.0-47.0); HEMOGLOBIN 15.8 g/dL (12.0-15.5); LYMPHOCYTES % (AUTO) 39.5 % (13-45); MEAN CORPUSCULAR HEMOGLOBIN 33.1 pg (27.0-33.4); MEAN CORPUSCULAR HGB CONC 35.4 g/dL (32.0-36.0); MEAN CORPUSCULAR VOLUME 93 fl (80-97); MONOCYTES % (AUTO) 5.4 % (3-13); PLATELET COUNT 338 10^3/uL (150-450); RED BLOOD COUNT 4.77 10^6/uL (3.72-5.28); RED CELL DISTRIBUTION WIDTH 12.5 % (11.5-14.0); SEGMENTED NEUTROPHILS % (AUTO) 52.2 % (42-78); TOTAL CELLS COUNTED % (AUTO) 100 %; WHITE BLOOD COUNT 6.6 10^3/uL (4.0-10.5)
[2018-06-05 13:40] LABS: APPEARANCE,URINE SLIGHTLY-CLOUDY; BILIRUBIN,URINE NEGATIVE (NEGATIVE); COLOR,URINE YELLOW; GLUCOSE, URINE NEGATIVE (NEGATIVE); KETONES,URINE NEGATIVE (NEGATIVE); LEUKOCYTE ESTERASE,URINE NEGATIVE (NEGATIVE); NITRITE,URINE NEGATIVE (NEGATIVE); PROTEIN,URINE NEGATIVE (NEGATIVE); UROBILINOGEN,URINE NEGATIVE mg/dL (<2.0)
[2018-06-05 13:43] LABS: ALANINE AMINOTRANSFERASE 124 U/L (9-52); ALBUMIN 4.8 g/dL (3.5-5.0); ALKALINE PHOSPHATASE 74 U/L (38-126); ANION GAP 7 (5-19); ASPARTATE AMINO TRANSFERASE 72 U/L (14-36); BILIRUBIN,DIRECT 0.1 mg/dL (0.0-0.4); BILIRUBIN,TOTAL 0.3 mg/dL (0.2-1.3); BLOOD UREA NITROGEN 10 mg/dL (7-20); CARBON DIOXIDE 28 mmol/L (22-30); CHLORIDE 105 mmol/L (98-107); GLUCOSE 100 mg/dL (75-110); SODIUM 140.2 mmol/L (137-145); TOTAL PROTEIN 7.6 g/dL (6.3-8.2)
--- NOTE | 2018-06-05 14:12 | ER Document Report ---
ED General - General Chief Complaint: Flank Pain Stated Complaint: BACK PAIN/DIZZY Time Seen by Provider: 06/05/18 12:40 Mode of Arrival: Ambulatory Information source: Patient Notes: 42-year-old female with around 1 week of some runny nose, ejection, and coughing with some pain to her lower bilateral areas of her back with coughing. She denies any fevers, vomiting, and has had some loose stools without blood. Patient denies any weakness or numbness of the legs, dysuria, or pain to the [place] regions. Patient was told that she had type 2 diabetes years ago and has been trying to diet control this condition. She denies any headache or sore throat. TRAVEL OUTSIDE OF THE [place] IN LAST 30 DAYS: No - HPI Onset: Other - See above Quality of pain: Other Severity: Mild Pain Level: Denies Associated symptoms: Other - See above Exacerbated by: Denies Relieved by: Denies Similar symptoms previously: No Recently seen / treated by doctor: No - Related Data Allergies/Adverse Reactions: Potassium Clavulanate * [From Augmentin] Allergy (Severe, Verified 11/21/16 13:25) n and v amoxicillin trihydrate [From Augmentin] Allergy (Verified 11/21/16 13:25) n and v etodolac [From Lodine] Adverse Reaction (Verified 11/21/16 13:25) rash levofloxacin [From Levaquin] Adverse Reaction (Verified 11/21/16 13:25) abd pain nitrofurantoin [From Macrobid] Adverse Reaction (Verified 11/21/16 13:25) chest tight sulfamethoxazole [From Bactrim] Adverse Reaction (Verified 11/21/16 13:25) rash trimethoprim [From Bactrim] Adverse Reaction (Verified 11/21/16 13:25) rash Past Medical History - Social History Smoking Status: Current Every Day Smoker Frequency of alcohol use: Occasional Drug Abuse: None Family History: Reviewed & Not Pertinent, CVA, DM, Hyperlipidemia, Hypertension, Malignancy, Thyroid Disfunction Patient has suicidal ideation: No Patient has homicidal ideation: No Pulmonary Medical History: Reports: Hx Asthma - inhalers Endocrine Medical History: Reports: Hx Diabetes Mellitus Type 2 - Diet controlled Renal/ Medical History: Reports: Hx Ovarian Cysts. Denies: Hx Peritoneal Dialysis Psychiatric Medical History: Reports: Hx Bipolar Disorder Past Surgical History: Reports: Hx Abdominal Surgery, Hx Appendectomy, Hx Gynecologic Surgery - left ovary removed., Hx Hysterectomy, Hx Oral Surgery, Hx Orthopedic Surgery - LEFT KNEE SURGERY, Hx Tonsillectomy - Immunizations Immunizations up to date: Yes Hx Diphtheria, Pertussis, Tetanus Vaccination: Yes Review of Systems - Review of Systems Constitutional: denies: Fever EENT: Nose congestion, Nose discharge. denies: Eye discharge Cardiovascular: denies: Chest pain, Palpitations Respiratory: denies: Short of breath Gastrointestinal: Diarrhea. denies: Vomiting Genitourinary: denies: Dysuria Musculoskeletal: denies: Leg swelling Skin: denies: Rash Neurological/Psychological: Other - no slurred speech -: Yes All other systems reviewed and negative Physical Exam - Vital signs Vitals: Temp Pulse Resp BP Pulse Ox 98.1 F 90 18 124/73 99 06/05/18 12:33 06/05/18 12:33 06/05/18 12:33 06/05/18 12:33 06/05/18 12:33 Notes: Reviewed vital signs and nursing note as charted by RN. CONSTITUTIONAL: Alert and oriented and responds appropriately to questions. Well-appearing; well-nourished HEAD: Normocephalic; atraumatic ENT: Normal nose; bilateral nonpurulent nasal diarrhea; moist mucous membranes; pharynx without lesions noted NECK: Supple without meningismus; non-tender; no cervical lymphadenopathy, no masses CARD: Regular rate and rhythm; no murmurs; symmetric distal pulses RESP: Normal chest excursion without splinting or tachypnea; breath sounds clear and equal bilaterally; no wheezing or rhonchi ABD/GI: Normal bowel sounds; non-distended; soft, non-tender to deep palpation of all 4 quadrants of the abdomen including the right upper quadrant BACK: The back appears normal and is non-tender to palpation along the midline spine. Patient does have some bilateral lower lumbar tenderness without swelling or erythema to the skin EXT: Normal ROM in all joints; non-tender to palpation; no edema SKIN: No acute lesions noted NEURO: 5 out of 5 bilateral lower extremity strength and sensation intact to light touch with normal 2+ patellar reflexes PSYCH: The patient's mood and manner are appropriate. Grooming and personal hygiene are appropriate. Course - Re-evaluation Re-evalutation: Given the history and physical examination I will order basic labs, chemistry, urine analysis, and reassess. Patient has clear lungs bilaterally and is not tachypneic with saturations around 100% on room air. I do not believe an x-ray of the chest is necessary. 06/05/18 14:10 Labs, glucose, urine analysis as recorded. No change in exam. Stable vital signs. Patient still has no tenderness to palpation of the right upper quadrant. Normal bilirubin level. Given the above history and physical examination with some nasal congestion and some mild nonproductive coughing over the last week with some bilateral lower back pain with the coughing, with no weakness of the legs or incontinence, with labs as recorded, I believe it is reasonable to discharge the patient home at this time with strict return precautions and follow-up with the primary care provider. - Vital Signs Vital signs: Temp Pulse Resp BP Pulse Ox 98.1 F 90 18 124/73 99 06/05/18 12:33 06/05/18 12:33 06/05/18 12:33 06/05/18 12:33 06/05/18 12:33 - Laboratory Result Diagrams: 06/05/18 13:00 06/05/18 13:00 Laboratory results interpreted by me: 06/05/18 06/05/18 13:00 13:00 Hgb 15.8 H AST 72 H ALT 124 H Discharge - Discharge Clinical Impression: Nasal congestion, Cough, Muscle strain Condition: Good Disposition: HOME, SELF-CARE Additional Instructions: Come back immediately for any increased pain, change in location or quality of pain, chest pain, abdominal pain, weakness or numbness of the legs, incontinence, or any other acute problems. Please follow-up with the primary care provider as we have discussed.
== END 2018-06-05 14:57 | disposition home or self-care (01) ==
LOC: ER 12:20
DX: T14.8XXA Other injury of unspecified body region, initial encounter (principal); R10.9 Unspecified abdominal pain; M54.9 Dorsalgia, unspecified; R09.81 Nasal congestion; R42 Dizziness and giddiness; R05 Cough; X58.XXXA Exposure to other specified factors, initial encounter; F17.200 Nicotine dependence, unspecified, uncomplicated; E11.9 Type 2 diabetes mellitus without complications; Z88.0 Allergy status to penicillin; Z88.3 Allergy status to other anti-infective agents; Z90.710 Acquired absence of both cervix and uterus
CPT/HCPCS: 36415; 80053; 81001; 82962; 85025; 99284

== ENCOUNTER 2018-07-17 15:51 | Emergency (ER) | payer BC ==
--- NOTE | 2018-07-17 16:44 | ER Document Report ---
ED Medical Screen (RME) - General Chief Complaint: Chest Congestion Stated Complaint: CHEST TIGHTNESS, SHORTNESS OF BREATH Time Seen by Provider: 07/17/18 16:42 Mode of Arrival: Ambulatory Information source: Patient TRAVEL OUTSIDE OF THE [place] IN LAST 30 DAYS: No - HPI Patient complains to provider of: sob Onset: Other - pt with 2-3 day h/o sob and pleuritic CP. Was seen at 2 days ago and told she had a URI - Related Data Allergies/Adverse Reactions: Potassium Clavulanate * [From Augmentin] Allergy (Severe, Verified 11/21/16 13:25) n and v amoxicillin trihydrate [From Augmentin] Allergy (Verified 11/21/16 13:25) n and v etodolac [From Lodine] Adverse Reaction (Verified 11/21/16 13:25) rash levofloxacin [From Levaquin] Adverse Reaction (Verified 11/21/16 13:25) abd pain nitrofurantoin [From Macrobid] Adverse Reaction (Verified 11/21/16 13:25) chest tight sulfamethoxazole [From Bactrim] Adverse Reaction (Verified 11/21/16 13:25) rash trimethoprim [From Bactrim] Adverse Reaction (Verified 11/21/16 13:25) rash Past Medical History - Social History Frequency of alcohol use: None Drug Abuse: None Pulmonary Medical History: Reports: Hx Asthma - inhalers Endocrine Medical History: Reports: Hx Diabetes Mellitus Type 2 - Diet controlled Renal/ Medical History: Reports: Hx Ovarian Cysts. Denies: Hx Peritoneal Dialysis Psychiatric Medical History: Reports: Hx Bipolar Disorder Past Surgical History: Reports: Hx Abdominal Surgery, Hx Appendectomy, Hx Gynecologic Surgery - left ovary removed., Hx Hysterectomy, Hx Oral Surgery, Hx Orthopedic Surgery - LEFT KNEE SURGERY, Hx Tonsillectomy - Immunizations Immunizations up to date: Yes Hx Diphtheria, Pertussis, Tetanus Vaccination: Yes Physical Exam - Vital signs Vitals: Temp Pulse Resp BP Pulse Ox 98.5 F 102 H 18 131/74 H 97 07/17/18 16:08 07/17/18 16:08 07/17/18 16:08 07/17/18 16:08 07/17/18 16:08 Course - Vital Signs Vital signs: Temp Pulse Resp BP Pulse Ox 98.5 F 102 H 18 131/74 H 97 07/17/18 16:08 07/17/18 16:08 07/17/18 16:08 07/17/18 16:08 07/17/18 16:08
[2018-07-17 17:36] LABS: ABSOLUTE EOSINOPHILS # (AUTO) 0.2 10^3/uL (0.0-0.6); ABSOLUTE LYMPHOCYTES (AUTO) 1.7 10^3/uL (0.5-4.7); ABSOLUTE MONOCYTES (AUTO) 0.4 10^3/uL (0.1-1.4); ABSOLUTE NEUT (AUTO) 3.7 10^3/uL (1.7-8.2); BASOPHILS % (AUTO) 0.4 % (0-2); EOSINOPHILS % (AUTO) 3.2 % (0-6); HEMATOCRIT 43.4 % (36.0-47.0); HEMOGLOBIN 15.1 g/dL (12.0-15.5); LYMPHOCYTES % (AUTO) 28.2 % (13-45); MEAN CORPUSCULAR HEMOGLOBIN 32.9 pg (27.0-33.4); MEAN CORPUSCULAR HGB CONC 34.9 g/dL (32.0-36.0); MEAN CORPUSCULAR VOLUME 94 fl (80-97); MONOCYTES % (AUTO) 6.9 % (3-13); PLATELET COUNT 296 10^3/uL (150-450); SEGMENTED NEUTROPHILS % (AUTO) 61.3 % (42-78); TOTAL CELLS COUNTED % (AUTO) 100 %
[2018-07-17 17:43] LABS: APPEARANCE,URINE SLIGHTLY-CLOUDY; BILIRUBIN,URINE NEGATIVE (NEGATIVE); COLOR,URINE STRAW; GLUCOSE, URINE NEGATIVE (NEGATIVE); KETONES,URINE NEGATIVE (NEGATIVE); LEUKOCYTE ESTERASE,URINE NEGATIVE (NEGATIVE); NITRITE,URINE NEGATIVE (NEGATIVE); PROTEIN,URINE NEGATIVE (NEGATIVE); URINE SPECIFIC GRAVITY 1.005; UROBILINOGEN,URINE NEGATIVE mg/dL (<2.0)
[2018-07-17 17:56] LABS: ALANINE AMINOTRANSFERASE 99 U/L (9-52); ALBUMIN 4.4 g/dL (3.5-5.0); ALKALINE PHOSPHATASE 69 U/L (38-126); ANION GAP 7 (5-19); ASPARTATE AMINO TRANSFERASE 59 U/L (14-36); BILIRUBIN,DIRECT 0.1 mg/dL (0.0-0.4); BILIRUBIN,TOTAL 0.2 mg/dL (0.2-1.3); BLOOD UREA NITROGEN 10 mg/dL (7-20); CALCIUM 9.7 mg/dL (8.4-10.2); CARBON DIOXIDE 30 mmol/L (22-30); CHLORIDE 103 mmol/L (98-107); CREATINE KINASE 50 U/L (30-135); GLUCOSE 93 mg/dL (75-110); POTASSIUM 4.1 mmol/L (3.6-5.0); SODIUM 139.5 mmol/L (137-145); TOTAL PROTEIN 7.1 g/dL (6.3-8.2)
[2018-07-17 18:05] LABS: CREATINE KINASE MB 0.36 ng/mL (<4.55)
[2018-07-17 18:09] LABS: TROPONIN I < 0.012 ng/mL
--- NOTE | 2018-07-17 18:36 | RADIOLOGY REPORT (SQ) ---
EXAM DESCRIPTION: CHEST 2 VIEWS COMPLETED DATE/TIME: 07/17/2018 5:24 pm REASON FOR STUDY: sob COMPARISON: None. TECHNIQUE: Frontal and lateral radiographic views of the chest acquired. NUMBER OF VIEWS: Two view. LIMITATIONS: None. FINDINGS: LUNGS AND PLEURA: No opacities, masses or pneumothorax. No pleural effusion. MEDIASTINUM AND HILAR STRUCTURES: No masses or contour abnormalities. HEART AND VASCULAR STRUCTURES: Heart normal size. No evidence for failure. BONES: No acute findings. HARDWARE: None in the chest. OTHER: No other significant finding. IMPRESSION: NO SIGNIFICANT RADIOGRAPHIC FINDING IN THE CHEST. TECHNICAL DOCUMENTATION: JOB ID: [id number] [employer]- All Rights Reserved Reading location - IP/workstation name: [email or web address]
--- NOTE | 2018-07-17 21:35 | ER Document Report ---
ED General - General Chief Complaint: Chest Congestion Stated Complaint: CHEST TIGHTNESS, SHORTNESS OF BREATH Time Seen by Provider: 07/17/18 16:42 Primary Care Provider: ANABEL TROTTER FNP-C [Primary Care Provider] - Follow up as needed Mode of Arrival: Ambulatory Notes: Patient is a 42-year-old female with a past medical history of type 2 diabetes controlled with diet who presents with complaints of 2 days of sinus congestion, fullness in the ears, postnasal drip and cough. Patient states that the symptoms started gradually, have been worsening since onset. Has tried medications as prescribed by an urgent care but notes that these have not improved her symptoms. Nothing seems to worsen her symptoms. She states that sometimes she becomes somewhat dizzy or has vertigo. Denies focal weakness or numbness. No headache. Has had similar symptoms in the past with sinus infecti ons or upper respiratory infections. TRAVEL OUTSIDE OF THE [place] IN LAST 30 DAYS: No - Related Data Allergies/Adverse Reactions: Potassium Clavulanate * [From Augmentin] Allergy (Severe, Verified 11/21/16 13:25) n and v amoxicillin trihydrate [From Augmentin] Allergy (Verified 11/21/16 13:25) n and v etodolac [From Lodine] Adverse Reaction (Verified 11/21/16 13:25) rash levofloxacin [From Levaquin] Adverse Reaction (Verified 11/21/16 13:25) abd pain nitrofurantoin [From Macrobid] Adverse Reaction (Verified 11/21/16 13:25) chest tight sulfamethoxazole [From Bactrim] Adverse Reaction (Verified 11/21/16 13:25) rash trimethoprim [From Bactrim] Adverse Reaction (Verified 11/21/16 13:25) rash Past Medical History - General Information source: Patient - Social History Smoking Status: Current Every Day Smoker Frequency of alcohol use: None Drug Abuse: None Family History: Reviewed & Not Pertinent, CVA, DM, Hyperlipidemia, Hypertension, Malignancy, Thyroid Disfunction Patient has suicidal ideation: No Patient has homicidal ideation: No Pulmonary Medical History: Reports: Hx Asthma - inhalers Endocrine Medical History: Reports: Hx Diabetes Mellitus Type 2 - Diet controlled Renal/ Medical History: Reports: Hx Ovarian Cysts. Denies: Hx Peritoneal Dialysis Psychiatric Medical History: Reports: Hx Bipolar Disorder Past Surgical History: Reports: Hx Abdominal Surgery, Hx Appendectomy, Hx Gynecologic Surgery - left ovary removed., Hx Hysterectomy, Hx Oral Surgery, Hx Orthopedic Surgery - LEFT KNEE SURGERY, Hx Tonsillectomy - Immunizations Immunizations up to date: Yes Hx Diphtheria, Pertussis, Tetanus Vaccination: Yes Review of Systems - Review of Systems Notes: Constitutional: Negative for fever. HENT: Positive for sore throat, sinus congestion, ear pain Eyes: Negative for visual changes. Cardiovascular: Negative for chest pain. Respiratory: Negative for shortness of breath. Positive for cough Gastrointestinal: Negative for abdominal pain, vomiting or diarrhea. Genitourinary: Negative for dysuria. Musculoskeletal: Negative for back pain. Skin: Negative for rash. Neurological: Negative for headaches, weakness or numbness. 10 point ROS negative except as marked above and in HPI. Physical Exam - Vital signs Vitals: Temp Pulse Resp BP Pulse Ox 98.5 F 102 H 18 131/74 H 97 07/17/18 16:08 07/17/18 16:08 07/17/18 16:08 07/17/18 16:08 07/17/18 16:08 Interpretation: Tachycardic Notes: PHYSICAL EXAMINATION: GENERAL: Well-appearing, well-nourished and in no acute distress. HEAD: Atraumatic, normocephalic. EYES: Pupils equal round and reactive to light, extraocular movements intact, sclera anicteric, conjunctiva are normal. ENT: nares patent, oropharynx clear without exudates. Moist mucous membranes. TMs clear bilaterally. NECK: Normal range of motion, supple without lymphadenopathy LUNGS: Breath sounds clear to auscultation bilaterally and equal. No wheezes rales or rhonchi. HEART: Regular rate and rhythm without murmurs ABDOMEN: Soft, nontender, normoactive bowel sounds. No guarding, no rebound. No masses appreciated. EXTREMITIES: Normal range of motion, no pitting or edema. No cyanosis. NEUROLOGICAL: No focal neurological deficits. Moves all extremities spontaneously and on command. PSYCH: Normal mood, normal affect. SKIN: Warm, Dry, normal turgor, no rashes or lesions noted. Course - Re-evaluation Re-evalutation: 07/17/18 21:33 Presentation is most consistent with a viral upper respiratory infection. Patient complains from a left nasal congestion, sinus pressure, fullness of the ears. Patient is overall well appearance, vitals within normal limits, well-hydrated. Patient denies any headache, neck pain, and has no evidence of meningismus on examination. Lungs are clear bilaterally. No evidence of respiratory distress. Based on clinical exam and history, I do not suspect an acute pneumonia, meningitis, strep pharyngitis, or an acute encephalitis. An extensive laboratory evaluation as well as a chest x-ray were undertaken in triage, reviewed and noted to be normal. Will discharge patient with return precautions and followup recommendations. They are in agreement this plan have verbalized understanding return precautions. - Vital Signs Vital signs: Temp Pulse Resp BP Pulse Ox 98.1 F 98 18 117/81 98 07/17/18 22:06 07/17/18 22:06 07/17/18 22:06 07/17/18 22:06 07/17/18 22:06 - Laboratory Result Diagrams: 07/17/18 17:12 07/17/18 17:12 Laboratory results interpreted by me: 07/17/18 17:12 AST 59 H ALT 99 H - Diagnostic Test Radiology reviewed: Image reviewed, Reports reviewed Radiology results interpreted by me: 07/18/18 03:41 Chest x-ray: No acute infiltrate or pneumothorax Discharge - Discharge Clinical Impression: Sinus congestion, Viral upper respiratory infection Condition: Good Disposition: HOME, SELF-CARE Additional Instructions: Your symptoms are most likely due to a viral infection it should resolve over the next 7-14 days. You should take [id number] guanfacine per bottle instructions to help thin the mucus. For nasal congestion: I would recommend kasey t you get [id number] oxymetazoline also known is afrin. Use only per bottle instructions and be sure to never use this for more than 3 days if you can develop severe rebound congestion. You may also use tylenol or ibuprofen as needed for aches and thorat discomfort. Please be sure to drink plenty of fluids and get rest. Return to the emergency department he began having difficulty breathing, chest pain, persistent vomiting, or any other symptoms that are concerning to you. Forms: Return to Work Referrals: ANABEL TROTTER, COOPERATIVE EDUCATION COORDINATOR-C [Primary Care Provider] - Follow up as needed
[2018-07-17 21:40] VITALS: BP 117/81
--- NOTE | 2018-07-18 07:01 | EKG REPORT ---
SEVERITY:- NORMAL ECG - SINUS RHYTHM : Confirmed by: Perico Flynn MD 18-Jul-2018 07:01:08
== END 2018-07-17 22:06 | disposition home or self-care (01) ==
LOC: ER 15:51
DX: J06.9 Acute upper respiratory infection, unspecified (principal); B97.89 Other viral agents as the cause of diseases classified elsewhere; R09.81 Nasal congestion; R09.89 Other specified symptoms and signs involving the circulatory and respiratory systems; R07.9 Chest pain, unspecified; R06.02 Shortness of breath; R09.82 Postnasal drip; R05 Cough; J02.9 Acute pharyngitis, unspecified; R00.0 Tachycardia, unspecified; F17.200 Nicotine dependence, unspecified, uncomplicated; J45.909 Unspecified asthma, uncomplicated; E11.9 Type 2 diabetes mellitus without complications
CPT/HCPCS: 36415; 71046; 80053; 81001; 81025; 82550; 82553; 84484; 85025; 85379; 93005; 93010; 99284

== ENCOUNTER 2018-10-31 07:05 | Emergency (ER) | payer BC ==
[2018-10-31] MEDS ORDERED: NORMAL SALINE 1000 ML 1,000 ML IV ONE (08:25)
[2018-10-31] MEDS ORDERED: DIPHENHYDRAMINE HCL 50 MG/ML VIAL IV ONE (08:25)
[2018-10-31] MEDS ORDERED: KETOROLAC TROMETHAMINE INJ/PF 30 MG/1 ML SDV IV ONE ×2 (08:25→09:29)
[2018-10-31] MEDS ORDERED: PROCHLORPERAZINE EDISYLATE INJ 10 MG/2 ML VIAL IV ONE (08:26)
[2018-10-31] MEDS ORDERED: FAMOTIDINE INJ/PF 20 MG/2 ML SDV IV ONE (08:26)
[2018-10-31] MEDS ORDERED: METHOCARBAMOL INJ/PF 1000 MG/10 ML SDV IV ONE (09:28)
[2018-10-31 11:22] VITALS: BP 127/80
--- NOTE | 2018-10-31 14:25 | ER Document Report ---
Entered by PUJA ZAMUDIO SCRIBE 10/31/18 0841 Acting as scribe for:TIAN SOTOMAYOR MD ED General - General Chief Complaint: Headache Stated Complaint: HEADACHE,CONGESTION,TINGLING IN FACE,WEAKNESS Time Seen by Provider: 10/31/18 08:00 Notes: Patient is a 42-year-old female presenting to the emergency department complaining of a headache, congestion, and tingling/numbness throughout her head and neck. Patient states that these symptoms began last week on the . Patient states that she went to urgent care where she was started on steroids to treat a suspected viral infection. Patient states that she has been coughing up white/yellow sputum. Patient states she noticed her blood pressure was elevated more than usual, she states that hypertension runs in her family and that she currently takes blood pressure medication. TRAVEL OUTSIDE OF THE [place] IN LAST 30 DAYS: No - Related Data Allergies/Adverse Reactions: Potassium Clavulanate * [From Augmentin] Allergy (Severe, Verified 10/31/18 07:15) n and v amoxicillin trihydrate [From Augmentin] Allergy (Verified 10/31/18 07:15) n and v etodolac [From Lodine] Adverse Reaction (Verified 10/31/18 07:15) rash levofloxacin [From Levaquin] Adverse Reaction (Verified 10/31/18 07:15) abd pain nitrofurantoin [From Macrobid] Adverse Reaction (Verified 10/31/18 07:15) chest tight sulfamethoxazole [From Bactrim] Adverse Reaction (Verified 10/31/18 07:15) rash trimethoprim [From Bactrim] Adverse Reaction (Verified 10/31/18 07:15) rash Past Medical History - General Information source: Patient - Social History Smoking Status: Current Every Day Smoker Cigarette use (# per day): Yes Chew tobacco use (# tins/day): No Frequency of alcohol use: None Drug Abuse: None Family History: Reviewed & Not Pertinent, CVA, DM, Hyperlipidemia, Hypertension, Malignancy, Thyroid Disfunction Patient has suicidal ideation: No Patient has homicidal ideation: No Pulmonary Medical History: Reports: Hx Asthma - inhalers Endocrine Medical History: Reports: Hx Diabetes Mellitus Type 2 - Diet controlled Renal/ Medical History: Reports: Hx Ovarian Cysts Psychiatric Medical History: Reports: Hx Bipolar Disorder Past Surgical History: Reports: Hx Abdominal Surgery, Hx Appendectomy, Hx Gynecologic Surgery - left ovary removed., Hx Hysterectomy, Hx Oral Surgery, Hx Orthopedic Surgery - LEFT KNEE SURGERY, Hx Tonsillectomy - Immunizations Immunizations up to date: Yes Hx Diphtheria, Pertussis, Tetanus Vaccination: Yes Review of Systems - Review of Systems Constitutional: No symptoms reported EENT: See HPI, Nose congestion Cardiovascular: See HPI Respiratory: See HPI, Sputum - white/yellow Gastrointestinal: No symptoms reported Genitourinary: No symptoms reported Female Genitourinary: No symptoms reported Musculoskeletal: No symptoms reported Skin: No symptoms reported Hematologic/Lymphatic: No symptoms reported Neurological/Psychological: See HPI, Headaches, Numbness, Tingling -: Yes All other systems reviewed and negative Physical Exam - Vital signs Vitals: Temp Pulse Resp BP Pulse Ox 97.5 F 86 20 146/107 H 98 10/31/18 07:10 10/31/18 07:10 10/31/18 07:10 10/31/18 07:10 10/31/18 07:10 - Notes Notes: Physical Exam: General: Alert, obese. HEENT: Right parietal/temporal musculature tenderness to palpation. Normocephalic. Atraumatic. PERRL. Extraocular movements intact. Oropharynx clear. Neck: Supple. Right posterior cervical musculature tenderness to palpation, trapezius musculature tenderness to palpation, scapular musculature tenderness to palpation. Respiratory: No respiratory distress. Clear and equal breath sounds bilaterally. Cardiovascular: Regular rate and rhythm. Abdominal: Normal Inspection. Non-tender. No distension. Normal Bowel Sounds. Back: Non-tender. No deformity or step off. Extremities: Moves all four extremities. Upper extremities: Normal inspection. Normal ROM. Lower extremities: Normal inspection. No edema. Normal ROM. Neurological: Normal cognition. AAOx4. Normal speech. Psychological: Normal affect. Normal Mood. Skin: Warm. Dry. Normal color. Course - Re-evaluation Re-evalutation: 10/31/18 09:29 Patient is feeling better and resting comfortably. The right posterior cervical muscles are still quite tender to palpate but are not hurting that much when she is at rest. We will give another dose of Toradol and a loading dose of Robaxin and then reevaluate. - Vital Signs Vital signs: Temp Pulse Resp BP Pulse Ox 98.1 F 88 16 127/80 H 98 10/31/18 11:21 10/31/18 11:21 10/31/18 11:21 10/31/18 11:21 10/31/18 11:21 Discharge - Discharge Clinical Impression: Viral syndrome, Muscle contraction headache Condition: Stable Disposition: HOME, SELF-CARE Additional Instructions: Tension Headache Your problem has been diagnosed as muscle tension headache. This very common type of headache occurs because of tightness in the muscles of the head and neck. The cause may be neck or jaw joint problems, but most commonly the cause is emotional stress. The headache may last hours or days. The treatment of uncomplicated tension headaches is rest and pain medication. Often, the newer antiinflammatory pain medications are prescribed, as these also decrease the irritability of the painful tissues. Muscle relaxers, cold packs, or warm packs are sometimes helpful. Anti-anxiety medication or narcotics are sometimes needed temporarily, but are best avoided in the long run. Your doctor has evaluated your headache problem, and finds no evidence of a serious health problem as a cause for the headache. If your headache becomes more severe, or if new symptoms develop (such as fever, stiff neck, vomiting, or decreasing alertness) you should be re-examined by the physician. Take the muscle relaxer medication as prescribed. Take Tylenol and ibuprofen or Aleve to help with the muscle tension discomfort. Get plenty of rest and sleep. Take plenty of fluids. Try ice packs and/or moist heat to the painful neck and scalp muscles. Follow-up with a local medical doctor if not improving. RETURN TO THE EMERGENCY ROOM IF ANY NEW OR WORSENING SYMPTOMS. Prescriptions: Methocarbamol [Robaxin 500 mg Tablet] 500 mg PO QID #20 tablet Forms: Return to Work Scribe Attestation: 10/31/18 08:49 I personally performed the services described in the documentation, reviewed and edited the documentation which was dictated to the scribe in my presence, and it accurately records my words and actions. I personally performed the services described in the documentation, reviewed and edited the documentation which was dictated to the scribe in my presence, and it accurately records my words and actions.
== END 2018-10-31 11:23 | disposition home or self-care (01) ==
LOC: ER 07:05
DX: R51 Headache (principal); M62.40 Contracture of muscle, unspecified site; R20.2 Paresthesia of skin; R20.0 Anesthesia of skin; R09.81 Nasal congestion; R05 Cough; E66.9 Obesity, unspecified; F17.210 Nicotine dependence, cigarettes, uncomplicated; J45.909 Unspecified asthma, uncomplicated; E11.9 Type 2 diabetes mellitus without complications; I10 Essential (primary) hypertension; Z79.899 Other long term (current) drug therapy; Z88.0 Allergy status to penicillin
CPT/HCPCS: 96376; 99283; 96361; 96374; 96375; J1200; J2800; J1885; J0780; J7030; S0028

== ENCOUNTER 2018-12-27 06:51 | Emergency (ER) | payer BC ==
--- NOTE | 2018-12-27 08:29 | ER Document Report ---
HPI - HPI Patient complains to provider of: skin rash Time Seen by Provider: 12/27/18 08:14 Onset: This morning Onset/Duration: Gradual Quality of pain: Burning Pain Level: 2 Context: Patient states she had a pimple to the left side of her ribs. Patient states that she had applied some triple antibiotic ointment with bandage to the area. Patient states the pimple seems to be healing although she developed a rash today. She does complain of some pruritus as well as sensation. Patient denies any difficulty breathing swallowing chest pain or shortness of breath. Associated Symptoms: Other - Skin rash Exacerbated by: Denies Relieved by: Denies Similar symptoms previously: No Recently seen / treated by doctor: No - ROS ROS below otherwise negative: Yes Systems Reviewed and Negative: Yes All other systems reviewed and negative - CONSTITUTIONAL Constitutional: DENIES: Fever, Chills - EENT EENT: DENIES: Sore Throat - RESPIRATORY Respiratory: DENIES: Trouble Breathing, Coughing - REPRODUCTIVE Reproductive: DENIES: : - DERM Skin Color: Erythema Skin Problems: Rash Past Medical History - General Information source: Patient - Social History Smoking Status: Current Every Day Smoker Smoking Education Provided: Yes Frequency of alcohol use: None Drug Abuse: None Occupation: Housekeeping Lives with: Family Family History: Reviewed & Not Pertinent, CVA, DM, Hyperlipidemia, Hypertension, Malignancy, Thyroid Disfunction Patient has suicidal ideation: No Patient has homicidal ideation: No Pulmonary Medical History: Reports: Hx Asthma - inhalers Endocrine Medical History: Reports: Hx Diabetes Mellitus Type 2 - Diet controlled, Hx Hypothyroidism Renal/ Medical History: Reports: Hx Ovarian Cysts. Denies: Hx Peritoneal Dialysis Psychiatric Medical History: Reports: Hx Bipolar Disorder Past Surgical History: Reports: Hx Abdominal Surgery, Hx Appendectomy, Hx Gynecologic Surgery - left ovary removed., Hx Hysterectomy, Hx Oral Surgery, Hx Orthopedic Surgery - LEFT KNEE SURGERY, Hx Tonsillectomy - Immunizations Immunizations up to date: Yes Hx Diphtheria, Pertussis, Tetanus Vaccination: Yes Vertical Provider Document - CONSTITUTIONAL Agree With Documented VS: Yes Exam Limitations: No Limitations General Appearance: WD/WN, No Apparent Distress - INFECTION CONTROL TRAVEL OUTSIDE OF THE [place] IN LAST 30 DAYS: No - HEENT HEENT: Atraumatic, Normocephalic - NECK Neck: Normal Inspection, Supple - RESPIRATORY Respiratory: Breath Sounds Normal, No Respiratory Distress - CARDIOVASCULAR Cardiovascular: Regular Rate, Regular Rhythm - BACK Back: Normal Inspection - MUSCULOSKELETAL/EXTREMETIES Musculoskeletal/Extremeties: MAEW - NEURO Level of Consciousness: Awake, Alert, Appropriate Motor/Sensory: No Motor Deficit - DERM Integumentary: Warm, Dry, Rash - Erythematous rash in a square shape to the left lateral side. Rash surrounding a central lesion that appears consistent with resolving pimple Course - Re-evaluation Re-evalutation: 12/27/18 08:30 Patient with what appears to be likely contact dermatitis due to the ointment she used topically. Patient encouraged to avoid use of this medication in the future and to listed as an allergy. - Vital Signs Vital signs: Temp Pulse Resp BP Pulse Ox 97.7 F 82 16 125/85 98 12/27/18 07:00 12/27/18 07:00 12/27/18 07:00 12/27/18 07:00 12/27/18 07:00 Discharge - Discharge Clinical Impression: Contact dermatitis Qualifiers: Contact dermatitis type: unspecified Contact dermatitis trigger: unspecified trigger Qualified Code(s): L25.9 - Unspecified contact dermatitis, unspecified cause Condition: Stable Disposition: HOME, SELF-CARE Instructions: Contact Dermatitis ([facility]), Topical Steroid Cream or Ointment ([facility]) Additional Instructions: Return immediately for any new or worsening symptoms Followup with your primary care provider, call tomorrow to make a followup appointment Prescriptions: Triamcinolone Acetonide [Aristocort 0.1% Cream] 1 applic TP TID #60 gm Forms: Return to Work Referrals: [facility] [Provider Group] - Follow up as needed
[2018-12-27 08:56] VITALS: BP 114/73
== END 2018-12-27 08:45 | disposition home or self-care (01) ==
LOC: ER 06:51
DX: L25.9 Unspecified contact dermatitis, unspecified cause (principal); F17.200 Nicotine dependence, unspecified, uncomplicated; E11.9 Type 2 diabetes mellitus without complications; J45.909 Unspecified asthma, uncomplicated
CPT/HCPCS: 99282

== ENCOUNTER → 2019-02-04 | Outpatient (CLI) | payer BC ==
[2019-02-04 12:50] LABS: ABSOLUTE EOSINOPHILS # (AUTO) 0.2 10^3/uL (0.0-0.6); ABSOLUTE LYMPHOCYTES (AUTO) 2.6 10^3/uL (0.5-4.7); ABSOLUTE MONOCYTES (AUTO) 0.4 10^3/uL (0.1-1.4); ABSOLUTE NEUT (AUTO) 3.8 10^3/uL (1.7-8.2); BASOPHILS % (AUTO) 0.7 % (0-2); EOSINOPHILS % (AUTO) 2.6 % (0-6); HEMATOCRIT 41.1 % (36.0-47.0); HEMOGLOBIN 14.3 g/dL (12.0-15.5); LYMPHOCYTES % (AUTO) 36.7 % (13-45); MEAN CORPUSCULAR HEMOGLOBIN 32.4 pg (27.0-33.4); MEAN CORPUSCULAR HGB CONC 34.8 g/dL (32.0-36.0); MEAN CORPUSCULAR VOLUME 93 fl (80-97); MONOCYTES % (AUTO) 6.2 % (3-13); PLATELET COUNT 274 10^3/uL (150-450); RED BLOOD COUNT 4.42 10^6/uL (3.72-5.28); RED CELL DISTRIBUTION WIDTH 12.7 % (11.5-14.0); SEGMENTED NEUTROPHILS % (AUTO) 53.8 % (42-78); TOTAL CELLS COUNTED % (AUTO) 100 %
[2019-02-04 13:11] LABS: ALBUMIN 4.2 g/dL (3.5-5.0); ALKALINE PHOSPHATASE 65 U/L (38-126); ANION GAP 10 (5-19); ASPARTATE AMINO TRANSFERASE 58 U/L (14-36); BILIRUBIN,DIRECT 0.1 mg/dL (0.0-0.4); BILIRUBIN,TOTAL 0.4 mg/dL (0.2-1.3); BLOOD UREA NITROGEN 8 mg/dL (7-20); CALCIUM 9.7 mg/dL (8.4-10.2); CARBON DIOXIDE 25 mmol/L (22-30); CHLORIDE 104 mmol/L (98-107); POTASSIUM 4.2 mmol/L (3.6-5.0); TOTAL PROTEIN 7.1 g/dL (6.3-8.2)
[2019-02-04 13:24] LABS: GLUCOSE 68 mg/dL (75-110)
== END ==
LOC: LAB 12:30
PROVIDERS: ATTEND Nurse Practitioner Acute Care
DX: R10.11 Right upper quadrant pain (principal); R10.9 Unspecified abdominal pain
CPT/HCPCS: 36415; 80053; 83690; 85025; 87086

== ENCOUNTER → 2019-02-08 | Outpatient (CLI) | payer BC ==
--- NOTE | 2019-02-08 08:17 | WOMENS IMAGING REPORT ---
EXAM DESCRIPTION: U/S ABDOMEN LIMITED COMPLETED DATE/TIME: 02/08/2019 7:28 am REASON FOR STUDY: R10.11 RIGHT UPPER QUADRANT PAIN R10.11 RIGHT UPPER QUADRANT PAIN COMPARISON: 08/11/2017 TECHNIQUE: Dynamic and static grayscale images acquired of the abdomen and recorded on PACS. Additio nal selected color Doppler and spectral images recorded. LIMITATIONS: Body habitus and overlying bowel gas. FINDINGS: PANCREAS: Visualized portion of the pancreas are normal in appearance. LIVER: Echotexture is coarse with increased echogenicity consistent with fatty infiltration. LIVER VASCULATURE: Normal directional flow of the main portal vein and hepatic veins. GALLBLADDER: No stones. Normal wall thickness. No pericholecystic fluid. ULTRASOUND-DETECTED MOSCOSO'S SIGN: Negative. INTRAHEPATIC DUCTS AND COMMON DUCT: CBD and intrahepatic ducts normal caliber. No filling defects. INFERIOR VENA CAVA: Normal flow. AORTA: No aneurysm. RIGHT KIDNEY: Normal size. Normal echogenicity. No solid or suspicious masses. No hydronephros is. No calcifications. PERITONEAL AND RIGHT PLEURAL SPACE: No ascites or effusions. OTHER: No other significant finding. IMPRESSION: FATTY INFILTRATION OF THE LIVER. OTHERWISE NORMAL RIGHT UPPER QUADRANT ULTRASOUND. TECHNICAL DOCUMENTATION: JOB ID: [id number] [employer]- All Rights Reserved Reading location - IP/workstation name: [email or web address]
== END ==
LOC: WI 07:00
PROVIDERS: ATTEND Nurse Practitioner Family
DX: K76.0 Fatty (change of) liver, not elsewhere classified (principal); R10.11 Right upper quadrant pain
CPT/HCPCS: 76705

== ENCOUNTER 2019-02-09 05:21 | Emergency (ER) | payer BC ==
[2019-02-09 06:26] LABS: ABSOLUTE EOSINOPHILS # (AUTO) 0.2 10^3/uL (0.0-0.6); ABSOLUTE MONOCYTES (AUTO) 0.3 10^3/uL (0.1-1.4); ABSOLUTE NEUT (AUTO) 3.8 10^3/uL (1.7-8.2); BASOPHILS % (AUTO) 0.7 % (0-2); EOSINOPHILS % (AUTO) 3.6 % (0-6); HEMATOCRIT 43.6 % (36.0-47.0); HEMOGLOBIN 15.2 g/dL (12.0-15.5); LYMPHOCYTES % (AUTO) 30.8 % (13-45); MEAN CORPUSCULAR HEMOGLOBIN 32.7 pg (27.0-33.4); MEAN CORPUSCULAR HGB CONC 34.8 g/dL (32.0-36.0); MEAN CORPUSCULAR VOLUME 94 fl (80-97); PLATELET COUNT 284 10^3/uL (150-450); RED BLOOD COUNT 4.64 10^6/uL (3.72-5.28); RED CELL DISTRIBUTION WIDTH 12.6 % (11.5-14.0); SEGMENTED NEUTROPHILS % (AUTO) 59.9 % (42-78); TOTAL CELLS COUNTED % (AUTO) 100 %; WHITE BLOOD COUNT 6.4 10^3/uL (4.0-10.5)
[2019-02-09 06:32] LABS: APPEARANCE,URINE CLEAR; BILIRUBIN,URINE NEGATIVE (NEGATIVE); COLOR,URINE YELLOW; GLUCOSE, URINE NEGATIVE (NEGATIVE); KETONES,URINE NEGATIVE (NEGATIVE); LEUKOCYTE ESTERASE,URINE NEGATIVE (NEGATIVE); NITRITE,URINE NEGATIVE (NEGATIVE); PROTEIN,URINE NEGATIVE (NEGATIVE); UROBILINOGEN,URINE NEGATIVE mg/dL (<2.0)
[2019-02-09] MEDS ORDERED: ONDANSETRON HCL INJ/PF 4 MG/2 ML SDV IV ONE (06:33)
--- NOTE | 2019-02-09 06:34 | ER Document Report ---
ED General - General Chief Complaint: Abdominal Pain Stated Complaint: STOMACH PAIN Time Seen by Provider: 02/09/19 06:20 Primary Care Provider: REX OWUSU NP [Primary Care Provider] - Follow up as needed TRAVEL OUTSIDE OF THE [place] IN LAST 30 DAYS: No - HPI Notes: 43-year-old female presents with right upper quadrant pain. Patient describes gradual onset of right upper quadrant pain in the last 2 weeks. She describes it is been worse with eating, especially fatty foods. She has had some yellow- colored stools, diarrhea. Moderate intensity, gradual onset nonradiating. Underwent ultrasonography yesterday which was unremarkable. She states that her primary care doctor told her to "go to the ER to get a CAT scan" if it continued and then she could follow back up with her. No fever, chills or sweats. No constitutional symptoms. Moderate intensity, gradual onset, nonradiating. No other modifying factors, no other associated symptoms, no other provocative or palliative factors. - Related Data Allergies/Adverse Reactions: Potassium Clavulanate * [From Augmentin] Allergy (Severe, Verified 10/31/18 07:15) n and v amoxicillin trihydrate [From Augmentin] Allergy (Verified 10/31/18 07:15) n and v etodolac [From Lodine] Adverse Reaction (Verified 10/31/18 07:15) rash levofloxacin [From Levaquin] Adverse Reaction (Verified 10/31/18 07:15) abd pain nitrofurantoin [From Macrobid] Adverse Reaction (Verified 10/31/18 07:15) chest tight sulfamethoxazole [From Bactrim] Adverse Reaction (Verified 10/31/18 07:15) rash trimethoprim [From Bactrim] Adverse Reaction (Verified 10/31/18 07:15) rash Past Medical History - Social History Smoking Status: Current Every Day Smoker Drug Abuse: None Family History: Reviewed & Not Pertinent, CVA, DM, Hyperlipidemia, Hypertension, Malignancy, Thyroid Disfunction Patient has suicidal ideation: No Patient has homicidal ideation: No - Medical History Notes: Includes diabetes Pulmonary Medical History: Reports: Hx Asthma - inhalers Endocrine Medical History: Reports: Hx Diabetes Mellitus Type 2 - Diet controlled, Hx Hypothyroidism Renal/ Medical History: Reports: Hx Ovarian Cysts. Denies: Hx Peritoneal Dialysis Psychiatric Medical History: Reports: Hx Bipolar Disorder Past Surgical History: Reports: Hx Abdominal Surgery, Hx Appendectomy, Hx Gynecologic Surgery - left ovary removed., Hx Hysterectomy, Hx Oral Surgery, Hx Orthopedic Surgery - LEFT KNEE SURGERY, Hx Tonsillectomy - Immunizations Immunizations up to date: Yes Hx Diphtheria, Pertussis, Tetanus Vaccination: Yes Review of Systems - Review of Systems Notes: Review of systems as in the history of present illness, otherwise negative x 10 systems. Physical Exam - Vital signs Vitals: Temp Pulse Resp BP Pulse Ox 97.5 F 82 16 124/88 H 99 02/09/19 05:27 02/09/19 05:27 02/09/19 05:27 02/09/19 05:27 02/09/19 05:27 - Notes Notes: General: Well developed . HEENT: Normocephalic, atraumatic. Pupils equal round reactive to light. No JVD. Chest: No trauma. Respiratory: Good air exchange, normal excursion. Cardiac: Regular rhythm. No murmurs or gallops. Abdomen: Soft nondistended with no guarding rigidity or rebound. Mild to moderate right upper quadrant pain. No Romero sign Back: No asymmetry or gross abnormality. Motor: Grossly normal power and tone. Neurologic: Alert, nonfocal. Cranial nerves II-12 are intact. Sensation intact. Vascular: Well perfused. Normal peripheral pulses. Skin: No petechiae or purpura. Course - Re-evaluation Re-evalutation: 02/09/19 06:33 Well-appearing female with persistent right upper quadrant pain. Strongly suspicious for biliary colic, given her recent ultrasound which is negative, consider underlying biliary dyskinesia. Doubt appendicitis. Doubt pancreatitis. Less likely gastritis or peptic ulcer disease. We will proceed with analgesics, labs, Pepcid, reevaluate. 02/09/19 08:28 Labs reviewed, CBC, chemistries LFTs lipase unremarkable. Serial exam showed benign abdomen. This point I see no indication for CT imaging. Patient may benefit from an outpatient gallbladder emptying scan. Discharged home with prescription for Bentyl, Zofran, follow-up with primary care doctor. - Vital Signs Vital signs: Temp Pulse Resp BP Pulse Ox 97.5 F 82 16 124/88 H 99 02/09/19 05:27 02/09/19 05:27 02/09/19 05:27 02/09/19 05:27 02/09/19 05:27 - Laboratory Result Diagrams: 02/09/19 06:05 02/09/19 06:05 Laboratory results interpreted by me: 02/09/19 06:05 Glucose 122 H AST 62 H Discharge - Discharge Clinical Impression: Abdominal pain Qualifiers: Abdominal location: unspecified location Qualified Code(s): R10.9 - Unspecified abdominal pain Condition: Stable Disposition: HOME, SELF-CARE Instructions: Abdominal Pain ([facility]) Prescriptions: Dicyclomine HCl [Bentyl 20 mg Tablet] 20 mg PO Q6 #12 tablet Ondansetron [Zofran Odt 4 mg Tablet] 1 - 2 tab PO Q4H PRN #15 tab.rapdis PRN Reason: For Nausea/Vomiting Referrals: [facility] OW[facility] [employer] [facility] [Primary Care Provider] - Follow up tomorrow
[2019-02-09 06:52] LABS: ALBUMIN 4.2 g/dL (3.5-5.0); ALKALINE PHOSPHATASE 66 U/L (38-126); ANION GAP 7 (5-19); ASPARTATE AMINO TRANSFERASE 62 U/L (14-36); BILIRUBIN,DIRECT 0.1 mg/dL (0.0-0.4); BILIRUBIN,TOTAL 0.6 mg/dL (0.2-1.3); BLOOD UREA NITROGEN 9 mg/dL (7-20); CALCIUM 9.6 mg/dL (8.4-10.2); CARBON DIOXIDE 28 mmol/L (22-30); CHLORIDE 103 mmol/L (98-107); GLUCOSE 122 mg/dL (75-110); POTASSIUM 4.5 mmol/L (3.6-5.0); TOTAL PROTEIN 7.1 g/dL (6.3-8.2)
[2019-02-09 08:44] VITALS: BP 103/64
== END 2019-02-09 08:46 | disposition home or self-care (01) ==
LOC: ER 05:21
DX: R10.11 Right upper quadrant pain (principal); R19.7 Diarrhea, unspecified; F17.200 Nicotine dependence, unspecified, uncomplicated; E11.9 Type 2 diabetes mellitus without complications; E03.9 Hypothyroidism, unspecified; Z90.710 Acquired absence of both cervix and uterus; Z88.3 Allergy status to other anti-infective agents
CPT/HCPCS: 36415; 83690; 85025; 81025; 80053; 81001; J2405

== ENCOUNTER → 2019-06-08 | Outpatient (CLI) | payer BC, OTHER ==
[2019-06-08 12:38] LABS: ABSOLUTE EOSINOPHILS # (AUTO) 0.3 10^3/uL (0.0-0.6); ABSOLUTE LYMPHOCYTES (AUTO) 2.7 10^3/uL (0.5-4.7); ABSOLUTE MONOCYTES (AUTO) 0.4 10^3/uL (0.1-1.4); ABSOLUTE NEUT (AUTO) 3.4 10^3/uL (1.7-8.2); BASOPHILS % (AUTO) 0.6 % (0-2); HEMATOCRIT 41.1 % (36.0-47.0); HEMOGLOBIN 14.5 g/dL (12.0-15.5); LYMPHOCYTES % (AUTO) 39.3 % (13-45); MEAN CORPUSCULAR HEMOGLOBIN 33.1 pg (27.0-33.4); MEAN CORPUSCULAR HGB CONC 35.2 g/dL (32.0-36.0); MEAN CORPUSCULAR VOLUME 94 fl (80-97); MONOCYTES % (AUTO) 5.4 % (3-13); PLATELET COUNT 301 10^3/uL (150-450); RED BLOOD COUNT 4.37 10^6/uL (3.72-5.28); RED CELL DISTRIBUTION WIDTH 12.5 % (11.5-14.0); SEGMENTED NEUTROPHILS % (AUTO) 50.7 % (42-78); TOTAL CELLS COUNTED % (AUTO) 100 %; WHITE BLOOD COUNT 6.8 10^3/uL (4.0-10.5)
== END ==
LOC: OD 12:05
PROVIDERS: ATTEND Nurse Practitioner Acute Care
DX: J02.9 Acute pharyngitis, unspecified (principal)
CPT/HCPCS: 36415; 85025; 86308

== ENCOUNTER 2019-07-19 08:06 | Emergency (ER) | payer BC, OTHER ==
[2019-07-19] MEDS ORDERED: OXYCODONE-ACETAMINOPHEN 5-325 MG TABLET PO ONE (10:16)
[2019-07-19] MEDS ORDERED: CYCLOBENZAPRINE HCL 10 MG TABLET PO ONE (10:17)
[2019-07-19] MEDS ORDERED: PREDNISONE 20 MG TABLET PO ONE (10:17)
--- NOTE | 2019-07-19 10:22 | ER Document Report ---
ED General - General Chief Complaint: Low Back Pain Stated Complaint: BACK PAIN Time Seen by Provider: 07/19/19 09:30 TRAVEL OUTSIDE OF THE [place] IN LAST 30 DAYS: No - HPI Notes: Patient is a 43-year-old female presents emergency department for evaluation of lower back pain. She has a history of lower back pain. She states she got out of her 's truck on Wednesday, she felt a pop in her back. It did not immediately hurt. She states that over the next several hours she started to have lower back pain. It was not radiating. Her pain worsened today. She states now it radiates into bilateral legs, right greater than left. She states she feels numbness and tingling in both her legs intermittently. She denies any bowel or bladder incontinence, no saddle anesthesia, notes no focal weakness. She has been trying some ibuprofen at home and states that that is offered some minimal relief. She is also been using ice and heat. She currently puts her pain at an 8 out of 10. Sharp and stabbing. - Related Data Allergies/Adverse Reactions: Potassium Clavulanate * [From Augmentin] Allergy (Severe, Verified 07/19/19 08:42) n and v amoxicillin trihydrate [From Augmentin] Allergy (Verified 07/19/19 08:42) n and v etodolac [From Lodine] Adverse Reaction (Verified 07/19/19 08:42) rash levofloxacin [From Levaquin] Adverse Reaction (Verified 07/19/19 08:42) abd pain nitrofurantoin [From Macrobid] Adverse Reaction (Verified 07/19/19 08:42) chest tight sulfamethoxazole [From Bactrim] Adverse Reaction (Verified 07/19/19 08:42) rash trimethoprim [From Bactrim] Adverse Reaction (Verified 07/19/19 08:42) rash Home Medications: Grzi-[id number] ibuprofen Past Medical History - General Information source: Patient - Social History Smoking Status: Current Every Day Smoker Chew tobacco use (# tins/day): Yes Frequency of alcohol use: None Family History: Reviewed & Not Pertinent, CVA, DM, Hyperlipidemia, Hypertension, Malignancy, Thyroid Disfunction Patient has suicidal ideation: No Patient has homicidal ideation: No Pulmonary Medical History: Reports: Hx Asthma - inhalers Endocrine Medical History: Reports: Hx Diabetes Mellitus Type 2 - Diet controlled, Hx Hypothyroidism Renal/ Medical History: Reports: Hx Ovarian Cysts. Denies: Hx Peritoneal Dialysis Musculoskeletal Medical History: Reports Hx Musculoskeletal Trauma - Back injury in her youth Psychiatric Medical History: Reports: Hx Bipolar Disorder Past Surgical History: Reports: Hx Abdominal Surgery, Hx Appendectomy, Hx Gynecologic Surgery - left ovary removed., Hx Hysterectomy, Hx Oral Surgery, Hx Orthopedic Surgery - LEFT KNEE SURGERY, Hx Tonsillectomy - Immunizations Immunizations up to date: Yes Hx Diphtheria, Pertussis, Tetanus Vaccination: Yes Review of Systems - Review of Systems Musculoskeletal: See HPI -: Yes All other systems reviewed and negative Physical Exam - Vital signs Vitals: Temp Pulse Resp BP Pulse Ox 97.3 F 89 22 H 142/80 H 97 07/19/19 08:10 07/19/19 08:10 07/19/19 08:10 07/19/19 08:10 07/19/19 08:10 - Notes Notes: This is an obese 43-year-old female who appears her stated age in mild distress. Vital signs reviewed, please refer to chart. Head is normocephalic, atraumatic. Pupils equal round, reactive to light. Neck is supple without meningismus. Heart is regular rate and rhythm. Lungs are clear to auscultation bilaterally. Abdomen is soft, nontender, normoactive bowel sounds throughout. Extremities without cyanosis, clubbing. Posterior calves are nontender. Examination of the spine yields no midline tenderness without step-off from approximately T12 down through the sacrum. She has paraspinal musculature tenderness with mild as sociated spasm throughout the lumbar spine, right greater than left. Positive piriformis tenderness to palpation. Negative straight leg raise bilaterally. Strength testing deferred secondary to pain level. Sensation is intact. Patellar and Achilles reflexes are 2+ and symmetrical. Course - Re-evaluation Re-evalutation: 07/19/19 10:20 Patient presents emergency department for evaluation of low back pain. She does not have any red flag symptoms. She is now having any urinary symptoms. I do suspect this is all musculoskeletal. Patient is treated here with prednisone, Percocet, Flexeril. I will send her home with prescriptions for the prednisone and Flexeril. She is encouraged strongly to follow-up with primary care and seek out possible physical therapy. She voiced understanding to this. Otherwise she is to return to the ED with worsening or new concerning symptoms of any sort. - Vital Signs Vital signs: Temp Pulse Resp BP Pulse Ox 97.3 F 89 22 H 142/80 H 97 07/19/19 08:10 07/19/19 08:10 07/19/19 08:10 07/19/19 08:10 07/19/19 08:10 Discharge - Discharge Clinical Impression: Acute exacerbation of chronic low back pain Sciatica Qualifiers: Laterality: bilateral Qualified Code(s): M54.31 - Sciatica, right side; M54.32 - Sciatica, left side Condition: Stable Disposition: HOME, SELF-CARE Instructions: Low Back Pain ([facility]), Sciatica ([facility]), Warm Packs ([facility]) Additional Instructions: Moist heat to the affected area. Avoid complete bed rest. Please do not lift anything heavier than 5 pounds, approximately a gallon of milk. Take medications as prescribed. Please watch for drowsiness with the Flexeril. Follow-up with primary care in 1 to 2 weeks, you should consider referral onto physical therapy. Return to the emergency department with worsening or new concerning symptoms of any sort.
[2019-07-19 10:35] VITALS: BP 141/94
== END 2019-07-19 10:35 | disposition home or self-care (01) ==
LOC: ER 08:06
DX: M54.5 Low back pain (principal); M54.31 Sciatica, right side; M54.32 Sciatica, left side; F17.210 Nicotine dependence, cigarettes, uncomplicated; Z88.0 Allergy status to penicillin; Z88.3 Allergy status to other anti-infective agents
CPT/HCPCS: 99283; J7512

== ENCOUNTER 2019-12-28 14:07 | Emergency (ER) | payer BC, OTHER ==
[2019-12-28] MEDS ORDERED: DEXAMETHASONE SOD PHOSPHATE INJ 4 MG/1 ML VIAL IM STA (14:14)
[2019-12-28] MEDS ORDERED: FAMOTIDINE 20 MG TABLET PO ONE (14:15)
[2019-12-28] MEDS ORDERED: DIPHENHYDRAMINE HCL 50 MG/ML VIAL IM STA (14:15)
--- NOTE | 2019-12-28 14:17 | ER Document Report ---
ED Allergic Reaction - General Chief Complaint: Allergic Reaction Stated Complaint: INSECT STING/ALLERGIC REACTION Time Seen by Provider: 12/28/19 14:13 Primary Care Provider: [facility] [Provider Group] - Follow up as needed Mode of Arrival: Ambulatory Information source: Patient Notes: Patient is a 44-year-old female comes emergency room complaint of being stung by a wasp. Patient says she has a bad allergy reaction to this type of bee sting. She is not sure where her EpiPen is and so she decided to come in here. She denies any swelling of lips or tongue currently but she is stating that gets getting harder to take a deep breath. Muscle a bit difficulty swallowing. TRAVEL OUTSIDE OF THE [place] IN LAST 30 DAYS: No - HPI Onset: Just prior to arrival Onset/Duration: Sudden, Persistent, Worse Quality of pain: Achy, Other - Itchy Severity: Moderate Pain Level: 3 Identified cause: Yes Medication Exposure: Wasp Skin rash / itching: Trunk, Extremities, "Redness", "Hives" Trouble swallowing / speaking: Moderate Associated symptoms: Lightheaded Similar symptoms previously: Yes Recently seen / treated by doctor: No - Related Data Allergies/Adverse Reactions: Potassium Clavulanate * [From Augmentin] Allergy (Severe, Verified 07/19/19 08:42) n and v amoxicillin trihydrate [From Augmentin] Allergy (Verified 07/19/19 08:42) n and v bee venom protein (honey bee) Allergy (Verified 12/28/19 14:17) hornet venom Allergy (Verified 12/28/19 14:17) etodolac [From Lodine] Adverse Reaction (Verified 07/19/19 08:42) rash levofloxacin [From Levaquin] Adverse Reaction (Verified 07/19/19 08:42) abd pain nitrofurantoin [From Macrobid] Adverse Reaction (Verified 07/19/19 08:42) chest tight sulfamethoxazole [From Bactrim] Adverse Reaction (Verified 07/19/19 08:42) rash trimethoprim [From Bactrim] Adverse Reaction (Verified 07/19/19 08:42) rash Past Medical History - General Information source: Patient - Social History Smoking Status: Current Every Day Smoker Cigarette use (# per day): Yes - Half pack Chew tobacco use (# tins/day): No Smoking Education Provided: Yes Frequency of alcohol use: None Drug Abuse: None Lives with: Family Family History: Reviewed & Not Pertinent, CVA, DM, Hyperlipidemia, Hypertension, Malignancy, Thyroid Disfunction Pulmonary Medical History: Reports: Hx Asthma - inhalers Endocrine Medical History: Reports: Hx Diabetes Mellitus Type 2 - Diet controlled, Hx Hypothyroidism Renal/ Medical History: Reports: Hx Ovarian Cysts. Denies: Hx Peritoneal Dialysis Musculoskeletal Medical History: Reports Hx Musculoskeletal Trauma - Back injury in her youth Psychiatric Medical History: Reports: Hx Bipolar Disorder Past Surgical History: Reports: Hx Abdominal Surgery, Hx Appendectomy, Hx Gynecologic Surgery - left ovary removed., Hx Hysterectomy, Hx Oral Surgery, Hx Orthopedic Surgery - LEFT KNEE SURGERY, Hx Tonsillectomy - Immunizations Immunizations up to date: Yes Hx Diphtheria, Pertussis, Tetanus Vaccination: Yes Review of Systems - Review of Systems Constitutional: No symptoms reported EENT: See HPI, Throat pain, Difficulty swallowing Cardiovascular: No symptoms reported Respiratory: See HPI, Short of breath Gastrointestinal: No symptoms reported Genitourinary: No symptoms reported Female Genitourinary: No symptoms reported Musculoskeletal: No symptoms reported Skin: See HPI, Rash Hematologic/Lymphatic: No symptoms reported Neurological/Psychological: No symptoms reported -: Yes All other systems reviewed and negative Physical Exam - Vital signs Vitals: Temp Pulse Resp BP Pulse Ox 98.4 F 105 H 18 144/84 H 98 12/28/19 14:10 12/28/19 14:10 12/28/19 14:10 12/28/19 14:10 12/28/19 14:10 Interpretation: Hypertensive, Tachycardic - Notes Notes: PHYSICAL EXAMINATION: GENERAL: Patient is a well-nourished well-developed 45-year-old female in no apparent distress on physical exam today. She does appear uncomfortable. HEAD: Atraumatic, normocephalic. There is no external sign of angioedema of the lips. EYES: Pupils equal round and reactive to light, extraocular movements intact, conjunctiva are normal. ENT: Examination patient's head and upper airway showed nasal mucosa to be slightly erythematous with some rhinorrhea noted. No frontal or maxillary sinus tenderness to palpation. Posterior pharynx as stated earlier shows no signs of angioedema the lips or tongue. The posterior pharynx is clear and airways patent. NECK: Normal range of motion, supple without lymphadenopathy LUNGS: Breath sounds clear to auscultation bilaterally and equal. No wheezes rales or rhonchi. HEART: Slightly tachycardic rhythm 105 beats a minute without murmurs Musculoskeletal: Examination patient's area of concern is she was stung in the left palm near the little finger at the base. Examination under lighting with tangential light and direct light does not show any sign of stinger. NEUROLOGICAL:Normal speech, normal gait. Normal sensory, motor exams PSYCH: Normal mood, normal affect. SKIN: Warm, Dry, normal turgor, no rashes or lesions noted. Course - Re-evaluation Re-evalutation: 12/28/19 22:16 Patient responded well to the steroid injection with the Benadryl and Pepcid. She has cleared up on her signs and symptoms and was discharged home. I discharge patient home with another combo EpiPen. And informed patient she needs to keep one closer at hand. She states that they are moving houses and her EpiPen was moved to the noon and she was at the old house when this occurred. - Vital Signs Vital signs: Temp Pulse Resp BP Pulse Ox 98.5 F 82 16 120/76 97 12/28/19 16:23 12/28/19 16:23 12/28/19 16:23 12/28/19 16:23 12/28/19 16:23 Discharge - Discharge Clinical Impression: Allergic reaction Qualifiers: Encounter type: initial encounter Qualified Code(s): T78.40XA - Allergy, unspecified, initial encounter Condition: Stable Disposition: HOME, SELF-CARE Instructions: Acute Allergic Reaction ([facility]), Insect Sting ([facility]) Additional Instructions: Home and rest. Medications prescribed. Take it until it is finished please this will you will have a reoccurrence of the reaction. I am going to write you for another EpiPen so you have one with you at all times. If you have any concerns or problems if you become more short of breath or you start having swelling around the lips or tongue return to ER for reevaluation once. You can continue with Benadryl 50 mg every 6 hours for the itch and discomfort. Prescriptions: Epinephrine [Epipen 2-Redd] 0.3 mg IJ ASDIR PRN #1 auto.injct PRN Reason: Methylprednisolone [Medrol Dosepack (4 mg/Tab) 21 Tab/Dosepak] 4 mg PO ASDIR PRN #21 tab.ds.pk PRN Reason: Forms: Elevated Blood Pressure, Return to Work Referrals: [facility] [Provider Group] - Follow up as needed
[2019-12-28 16:28] VITALS: BP 120/76
== END 2019-12-28 16:24 | disposition home or self-care (01) ==
LOC: ER 14:07
DX: T63.461A Toxic effect of venom of wasps, accidental (unintentional), initial encounter (principal); Y92.9 Unspecified place or not applicable; Z88.0 Allergy status to penicillin; Z88.8 Allergy status to other drugs, medicaments and biological substances; Z88.2 Allergy status to sulfonamides; F17.210 Nicotine dependence, cigarettes, uncomplicated; J45.909 Unspecified asthma, uncomplicated; E11.9 Type 2 diabetes mellitus without complications
CPT/HCPCS: 99284; 96372; J1100; J1200

== ENCOUNTER 2020-02-10 11:07 | Emergency (ER) | payer BC, OTHER ==
[2020-02-10 11:11] VITALS: BP 119/74
--- NOTE | 2020-02-10 11:21 | ER Document Report ---
ED Medical Screen (RME) - General Chief Complaint: Flank Pain Stated Complaint: ABDOMINAL PAIN/PAINFUL URINATION Time Seen by Provider: 02/10/20 11:16 Mode of Arrival: Ambulatory Information source: Patient Notes: 44-year-old female presented to ED for complaint of abdominal pain and pain with urination yesterday as the days progressed it has changed until overnight is right flank pain. She does have a history of kidney stones. She has had a hysterectomy in the past. She is alert oriented respirations regular nonlabored speaking in full sentences. Does have a history of kidney stones diabetes type 2 asthma bipolar and IBS. She does smoke 1/2 pack a day is working on quitting drinks alcohol rarely and last time was at least 6 months ago and does not use any illicit drugs. She is alert oriented respirations regular nonlabored speaking in full sentences. Will get blood urine noncontrasted abdomen pelvis CT and will give her ibuprofen in the triage area. I have greeted and performed a rapid initial assessment of this patient. A comprehensive ED assessment and evaluation of the patient, analysis of test results and completion of medical decision making process will be conducted by an additional ED providers. TRAVEL OUTSIDE OF THE [place] IN LAST 30 DAYS: No - Related Data Allergies/Adverse Reactions: Potassium Clavulanate * [From Augmentin] Allergy (Severe, Verified 07/19/19 08:42) n and v amoxicillin trihydrate [From Augmentin] Allergy (Verified 07/19/19 08:42) n and v bee venom protein (honey bee) Allergy (Verified 12/28/19 14:17) hornet venom Allergy (Verified 12/28/19 14:17) etodolac [From Lodine] Adverse Reaction (Verified 07/19/19 08:42) rash levofloxacin [From Levaquin] Adverse Reaction (Verified 07/19/19 08:42) abd pain nitrofurantoin [From Macrobid] Adverse Reaction (Verified 07/19/19 08:42) chest tight sulfamethoxazole [From Bactrim] Adverse Reaction (Verified 07/19/19 08:42) rash trimethoprim [From Bactrim] Adverse Reaction (Verified 07/19/19 08:42) rash Past Medical History Pulmonary Medical History: Reports: Hx Asthma - inhalers Endocrine Medical History: Reports: Hx Diabetes Mellitus Type 2 - Diet controlled, Hx Hypothyroidism Renal/ Medical History: Reports: Hx Ovarian Cysts. Denies: Hx Peritoneal Dialysis Musculoskeltal Medical History: Reports Hx Musculoskeletal Trauma - Back injury in her youth Psychiatric Medical History: Reports: Hx Bipolar Disorder Past Surgical History: Reports: Hx Abdominal Surgery, Hx Appendectomy, Hx Gynecologic Surgery - left ovary removed., Hx Hysterectomy, Hx Oral Surgery, Hx Orthopedic Surgery - LEFT KNEE SURGERY, Hx Tonsillectomy - Immunizations Immunizations up to date: Yes Hx Diphtheria, Pertussis, Tetanus Vaccination: Yes Physical Exam - Vital signs Vitals: Temp Pulse Resp BP Pulse Ox 98.0 F 93 18 119/74 98 02/10/20 11:09 02/10/20 11:09 02/10/20 11:09 02/10/20 11:09 02/10/20 11:09 Course - Vital Signs Vital signs: Temp Pulse Resp BP Pulse Ox 98.0 F 93 18 119/74 98 02/10/20 11:09 02/10/20 11:09 02/10/20 11:09 02/10/20 11:09 02/10/20 11:09
[2020-02-10] MEDS ORDERED: NORMAL SALINE 1000 ML 1,000 ML IV ONE (11:22)
[2020-02-10] MEDS ORDERED: KETOROLAC TROMETHAMINE INJ/PF 30 MG/1 ML SDV IV ONE (11:49)
[2020-02-10 11:56] LABS: APPEARANCE,URINE SLIGHTLY-CLOUDY; BILIRUBIN,URINE NEGATIVE (NEGATIVE); COLOR,URINE YELLOW; GLUCOSE, URINE NEGATIVE (NEGATIVE); KETONES,URINE NEGATIVE (NEGATIVE); LEUKOCYTE ESTERASE,URINE NEGATIVE (NEGATIVE); NITRITE,URINE NEGATIVE (NEGATIVE); PROTEIN,URINE NEGATIVE (NEGATIVE); URINE SPECIFIC GRAVITY 1.024
--- NOTE | 2020-02-10 11:57 | ER Document Report ---
ED GI/ - General Chief Complaint: Flank Pain Stated Complaint: ABDOMINAL PAIN/PAINFUL URINATION Time Seen by Provider: 02/10/20 11:16 Mode of Arrival: Ambulatory Notes: HPI: 44-year-old female that presents today stating the onset yesterday of some right flank/abdominal discomfort and pain with urination. Temperature max 100.0. No vomiting, cough, shortness of breath, anterior chest pain, and status post hysterectomy and appendectomy. No real exacerbation with eating. Patient believes she has had a kidney stone in the past. She denies any vaginal discharge. ROS: See HPI All other review of systems reviewed and otherwise negative Reviewed vital signs and nursing note as charted by RN. PHYSICAL EXAM: CONSTITUTIONAL: Alert and oriented and responds appropriately to questions. Well-appearing; well-nourished HEAD: Normocephalic; atraumatic EYES: Sclerae non-icteric ENT: Normal nose; no rhinorrhea; moist mucous membranes; pharynx without lesions noted NECK: Supple without meningismus; non-tender; no cervical lymphadenopathy, no masses CARD: Regular rate and rhythm; no murmurs; symmetric distal pulses RESP: Normal chest excursion without splinting or tachypnea; breath sounds clear and equal bilaterally ABD/GI: Normal bowel sounds; non-distended; soft, mildly tender the right upper quadrant without any rebound or guarding BACK: The back appears normal and is non-tender to palpation EXT: Normal ROM in all joints; non-tender to palpation; no edema SKIN: No acute lesions noted NEURO: CN 2-12 intact; 5/5 bilateral upper and lower extremity strength with sensation intact to light touch PSYCH: The patient's mood and manner are appropriate. Grooming and personal hygiene are appropriate. TRAVEL OUTSIDE OF THE [place] IN LAST 30 DAYS: No - Related Data Allergies/Adverse Reactions: Potassium Clavulanate * [From Augmentin] Allergy (Severe, Verified 02/10/20 11:22) n and v amoxicillin trihydrate [From Augmentin] Allergy (Verified 02/10/20 11:22) n and v bee venom protein (honey bee) Allergy (Verified 02/10/20 11:22) hornet venom Allergy (Verified 02/10/20 11:22) etodolac [From Lodine] Adverse Reaction (Verified 02/10/20 11:22) rash levofloxacin [From Levaquin] Adverse Reaction (Verified 02/10/20 11:22) abd pain nitrofurantoin [From Macrobid] Adverse Reaction (Verified 02/10/20 11:22) chest tight sulfamethoxazole [From Bactrim] Adverse Reaction (Verified 02/10/20 11:22) rash trimethoprim [From Bactrim] Adverse Reaction (Verified 02/10/20 11:22) rash Home Medications: multivitamin. probiotic. pro air. epi pen as needed Past Medical History - General Information source: Patient - Social History Smoking Status: Current Every Day Smoker Chew tobacco use (# tins/day): No Frequency of alcohol use: Rare Drug Abuse: None Family History: Reviewed & Not Pertinent, CVA, DM, Hyperlipidemia, Hypertension, Malignancy, Thyroid Disfunction Pulmonary Medical History: Reports: Hx Asthma - inhalers Endocrine Medical History: Reports: Hx Diabetes Mellitus Type 2 - Diet controlled, Hx Hypothyroidism Renal/ Medical History: Reports: Hx Ovarian Cysts. Denies: Hx Peritoneal Dialysis Musculoskeletal Medical History: Reports Hx Musculoskeletal Trauma - Back injury in her youth Psychiatric Medical History: Reports: Hx Bipolar Disorder Past Surgical History: Reports: Hx Abdominal Surgery, Hx Appendectomy, Hx Gynecologic Surgery - left ovary removed., Hx Hysterectomy, Hx Oral Surgery, Hx Orthopedic Surgery - LEFT KNEE SURGERY, Hx Tonsillectomy - Immunizations Immunizations up to date: Yes Hx Diphtheria, Pertussis, Tetanus Vaccination: Yes Physical Exam - Vital signs Vitals: Temp Pulse Resp BP Pulse Ox 98.0 F 93 18 119/74 98 02/10/20 11:09 02/10/20 11:09 02/10/20 11:09 02/10/20 11:09 02/10/20 11:09 Course - Re-evaluation Re-evalutation: 02/10/20 11:57 Given the above history and physical we will obtain basic labs, liver panel and lipase, renal colic CT scan, urine analysis, and reassess. Patient has some mild tenderness to the right upper quadrant. We will evaluate the patient's liver panel and bilirubin level. CT imaging was performed. Given the elevated liver enzymes I did perform an ultrasound. No acute pathology. Labs otherwise as recorded. Urine analysis shows no obvious signs of infection. No kidney stones on CT scan. GC/chlamydia/wet prep as recorded. I did perform a pelvic examination showing no obvious ulcerative lesions or discharge in the vaginal vault. Patient's pain is improved. Repeat exam is improved. Patient only received Toradol. Given the above history and physical examination, patient will be discharged home with strict return precautions pending urine culture results and follow-up with the primary care physician. - Vital Signs Vital signs: Temp Pulse Resp BP Pulse Ox 98.0 F 93 18 119/74 98 02/10/20 11:09 02/10/20 11:09 02/10/20 11:09 02/10/20 11:09 02/10/20 11:09 - Laboratory Result Diagrams: 02/10/20 12:30 02/10/20 12:30 Laboratory results interpreted by me: 02/10/20 02/10/20 11:30 12:30 Glucose 114 H AST 49 H ALT 73 H Urine Urobilinogen 2.0 H Urine Ascorbic Acid 40 H Discharge - Discharge Clinical Impression: Dysuria, Transaminitis, Right upper quadrant abdominal pain Condition: Good Disposition: HOME, SELF-CARE Additional Instructions: Come back immediately for any increased pain, change in location or quality of pain, fevers or vomiting, chest pain or shortness of breath, or any other acute problems. Please follow-up with your primary care physician for reassessment. You can take 600 mg of ibuprofen and 1 g of Tylenol every 6 hours as needed for pain.
[2020-02-10 12:56] LABS: ABSOLUTE EOSINOPHILS # (AUTO) 0.2 10^3/uL (0.0-0.6); ABSOLUTE LYMPHOCYTES (AUTO) 2.4 10^3/uL (0.5-4.7); ABSOLUTE MONOCYTES (AUTO) 0.4 10^3/uL (0.1-1.4); ABSOLUTE NEUT (AUTO) 3.3 10^3/uL (1.7-8.2); BASOPHILS % (AUTO) 0.4 % (0-2); EOSINOPHILS % (AUTO) 2.5 % (0-6); HEMATOCRIT 41.3 % (36.0-47.0); HEMOGLOBIN 14.6 g/dL (12.0-15.5); LYMPHOCYTES % (AUTO) 38.4 % (13-45); MEAN CORPUSCULAR HEMOGLOBIN 33.2 pg (27.0-33.4); MEAN CORPUSCULAR HGB CONC 35.4 g/dL (32.0-36.0); MEAN CORPUSCULAR VOLUME 94 fl (80-97); MONOCYTES % (AUTO) 6.8 % (3-13); PLATELET COUNT 273 10^3/uL (150-450); RED BLOOD COUNT 4.41 10^6/uL (3.72-5.28); SEGMENTED NEUTROPHILS % (AUTO) 51.9 % (42-78); TOTAL CELLS COUNTED % (AUTO) 100 %; WHITE BLOOD COUNT 6.3 10^3/uL (4.0-10.5)
[2020-02-10 13:02] LABS: RBCS (WET MOUNT) NO RBCS SEEN; T.VAGINALIS (WET MOUNT) NO TRICHOMONAS SEEN; WBCS (WET MOUNT) 1+ WBCS SEEN; YEAST (WET MOUNT) NO YEAST SEEN
[2020-02-10 13:03] LABS: BACTERIA (WET MOUNT) 4+ BACTERIA SEEN; EPITHELIALS (WET MOUNT) 3+ EPITHELIALS SEEN
[2020-02-10 13:05] LABS: ALBUMIN 4.1 g/dL (3.5-5.0); ALKALINE PHOSPHATASE 63 U/L (38-126); ANION GAP 6 (5-19); ASPARTATE AMINO TRANSFERASE 49 U/L (14-36); BILIRUBIN,DIRECT 0.2 mg/dL (0.0-0.4); BILIRUBIN,TOTAL 0.4 mg/dL (0.2-1.3); BLOOD UREA NITROGEN 9 mg/dL (7-20); CALCIUM 9.6 mg/dL (8.4-10.2); CARBON DIOXIDE 30 mmol/L (22-30); CHLORIDE 103 mmol/L (98-107); GLUCOSE 114 mg/dL (75-110); POTASSIUM 4.4 mmol/L (3.6-5.0); TOTAL PROTEIN 6.7 g/dL (6.3-8.2)
--- NOTE | 2020-02-10 13:16 | RADIOLOGY REPORT (SQ) ---
EXAM DESCRIPTION: CT ABD/PELVIS NO ORAL OR IV IMAGES COMPLETED DATE/TIME: 02/10/2020 1:00 pm REASON FOR STUDY: Flank pain right COMPARISON: 05/16/2011. TECHNIQUE: CT scan of the abdomen and pelvis performed without intravenous or oral contrast. Images reviewed with lung, soft tissue, and bone windows. Reconstructed coronal and sagittal MPR images revi ewed. All images stored on PACS. All CT scanners at this facility use dose modulation, iterative reconstruction, and/or weight based d osing when appropriate to reduce radiation dose to as low as reasonably achievable (ALARA). [facility]: Dose Right [facility]: CareDose [facility]: Dose Right [facility]: Teradose 4D [facility]: Yapmo RADIATION DOSE: mGy. LIMITATIONS: None. FINDINGS: LOWER CHEST: No significant findings. No nodules or infiltrates. NON-CONTRASTED LIVER, SPLEEN, ADRENALS: Evaluation limited by lack of IV contrast. No identified sign ificant masses. PANCREAS: No masses. No peripancreatic inflammatory changes. GALLBLADDER: No identified stones by CT criteria. No inflammatory changes to suggest cholecystitis. RIGHT KIDNEY AND URETER: No suspicious masses. Assessment limited by lack of IV contrast. No signif icant calcifications. No hydronephrosis or hydroureter. LEFT KIDNEY AND URETER: No suspicious masses. Assessment limited by lack of IV contrast. No signifi cant calcifications. No hydronephrosis or hydroureter. AORTA AND RETROPERITONEUM: No aneurysm. No retroperitoneal masses or adenopathy. BOWEL AND PERITONEAL CAVITY: No obvious masses or inflammatory changes. No free fluid. APPENDIX: Not visualized. PELVIS, BLADDER, AND ABDOMINAL WALL:No abnormal masses. No free fluid. Bladder normal. BONES: No significant findings. Degenerative changes in the lower lumbar spine. OTHER: No other significant finding. IMPRESSION: NO SIGNIFICANT OR ACUTE PROCESS IN THE ABDOMEN OR PELVIS. COMMENT: Quality ID # [id number]: Final reports with documentation of one or more dose reduction techniques (e.g., Automated exposure control, adjustment of the mA and/or kV according to patient size, use of iterative reconstruction technique) TECHNICAL DOCUMENTATION: JOB ID: [id number] 2010 [employer]- All Rights Reserved Reading location - IP/workstation name: [email or web address]
--- NOTE | 2020-02-10 14:21 | RADIOLOGY REPORT (SQ) ---
EXAM DESCRIPTION: U/S ABDOMEN LIMITED W/O DOP IMAGES COMPLETED DATE/TIME: 02/10/2020 2:12 pm REASON FOR STUDY: MP; ruq pain COMPARISON: 02/08/2019. TECHNIQUE: Dynamic and static grayscale images acquired of the abdomen and recorded on PACS. Anthonyo rizwana selected color Doppler and spectral images recorded. LIMITATIONS: None. FINDINGS: PANCREAS: No masses. No peripancreatic edema or fluid collections. LIVER: Echotexture is coarse with increased echogenicity consistent with fatty infiltration. LIVER VASCULATURE: Normal directional flow of the main portal vein and hepatic veins. GALLBLADDER: No stones. Normal wall thickness. No pericholecystic fluid. ULTRASOUND-DETECTED MOSCOSO'S SIGN: Negative. INTRAHEPATIC DUCTS AND COMMON DUCT: CBD and intrahepatic ducts normal caliber. No filling defects. INFERIOR VENA CAVA: Normal flow. AORTA: No aneurysm. RIGHT KIDNEY: Normal size. Normal echogenicity. No solid or suspicious masses. No hydronephros is. No calcifications. PERITONEAL AND RIGHT PLEURAL SPACE: No ascites or effusions. OTHER: No other significant finding. IMPRESSION: FATTY INFILTRATION OF THE LIVER. OTHERWISE NORMAL RIGHT UPPER QUADRANT ULTRASOUND. TECHNICAL DOCUMENTATION: JOB ID: [id number] 2010 [email or web address]- All Rights Reserved Reading location - IP/workstation name: [email or web address]
[2020-02-10 14:37] LABS: CHLAM PCR NOT DETECTED (NOT DETECT)
== END 2020-02-10 17:24 | disposition home or self-care (01) ==
LOC: ER 11:07
DX: R74.01 Elevation of levels of liver transaminase levels (principal); R10.11 Right upper quadrant pain; R30.0 Dysuria; F17.210 Nicotine dependence, cigarettes, uncomplicated; E11.9 Type 2 diabetes mellitus without complications; Z88.3 Allergy status to other anti-infective agents; Z87.442 Personal history of urinary calculi
CPT/HCPCS: 99285; 96361; 96374; 36415; 87086; 87210; 83690; 85025; 80053; 81001; 87491; 87591; 76705; 74176; J1885; J7030

== ENCOUNTER 2020-04-14 09:48 | Emergency (ER) | payer BC ==
[2020-04-14] MEDS ORDERED: METHYLPREDNISOLONE INJ 125 MG/2 ML SDV IV ONE (10:17)
[2020-04-14] MEDS ORDERED: IPRATROPIUM/ALBUTEROL 0.5-2.5 MG/3 ML AMPUL NEB ONE (10:17)
--- NOTE | 2020-04-14 10:19 | ER Document Report ---
ED Medical Screen (RME) - General Chief Complaint: Shortness Of Breath Stated Complaint: CHEST TIGHTNESS Time Seen by Provider: 04/14/20 10:12 Mode of Arrival: Ambulatory Information source: Patient Notes: HPI; 44-year-old female with shortness of breath times a week. Chest pain for 3 days that she describes as dull and aching to the left side of her chest, cough for the past 2 days. Patient with a history of asthma, states she was exposed to potpourri which she is allergic to a few days ago. Has been taking Mucinex and using her nebulizers without relief. Did have a negative Covid test 1 week ago. No other known Covid exposure. PE: Alert and oriented x3. Lungs moderate amount of wheezing no rales no rhonchi. Heart: Regular rate rhythm without murmurs, rubs, gallops. I have greeted and performed a rapid initial assessment of this patient. A comprehensive ED assessment and evaluation of the patient, analysis of test results and completion of the medical decision making process will be conducted by additional ED providers. I have specifically instructed the patient or family members with the patient to immediately return to any nursing staff should anything change in the patient's condition or with their chief complaint. TRAVEL OUTSIDE OF THE [place] IN LAST 30 DAYS: No - Related Data Allergies/Adverse Reactions: Potassium Clavulanate * [From Augmentin] Allergy (Severe, Verified 04/14/20 10:10) n and v amoxicillin trihydrate [From Augmentin] Allergy (Verified 04/14/20 10:10) n and v bee venom protein (honey bee) Allergy (Verified 04/14/20 10:10) hornet venom Allergy (Verified 04/14/20 10:10) etodolac [From Lodine] Adverse Reaction (Verified 04/14/20 10:10) rash levofloxacin [From Levaquin] Adverse Reaction (Verified 04/14/20 10:10) abd pain nitrofurantoin [From Macrobid] Adverse Reaction (Verified 04/14/20 10:10) chest tight sulfamethoxazole [From Bactrim] Adverse Reaction (Verified 04/14/20 10:10) rash trimethoprim [From Bactrim] Adverse Reaction (Verified 04/14/20 10:10) rash Past Medical History Pulmonary Medical History: Reports: Hx Asthma - inhalers Endocrine Medical History: Reports: Hx Diabetes Mellitus Type 2 - Diet controlled, Hx Hypothyroidism Renal/ Medical History: Reports: Hx Ovarian Cysts. Denies: Hx Peritoneal Dialysis Musculoskeltal Medical History: Reports Hx Musculoskeletal Trauma - Back injury in her youth Psychiatric Medical History: Reports: Hx Bipolar Disorder Past Surgical History: Reports: Hx Abdominal Surgery, Hx Appendectomy, Hx Gynecologic Surgery - left ovary removed., Hx Hysterectomy, Hx Oral Surgery, Hx Orthopedic Surgery - LEFT KNEE SURGERY, Hx Tonsillectomy - Immunizations Immunizations up to date: Yes Hx Diphtheria, Pertussis, Tetanus Vaccination: Yes Physical Exam - Vital signs Vitals: Temp Pulse Resp BP Pulse Ox 98.1 F 93 16 136/73 H 97 04/14/20 09:57 04/14/20 09:57 04/14/20 09:57 04/14/20 09:57 04/14/20 09:57 Course - Vital Signs Vital signs: Temp Pulse Resp BP Pulse Ox 98.1 F 93 16 136/73 H 97 04/14/20 09:57 04/14/20 09:57 04/14/20 09:57 04/14/20 09:57 04/14/20 09:57
[2020-04-14 10:34] LABS: ABSOLUTE BASOPHILS # (AUTO) 0.1 10^3/uL (0.0-0.2); ABSOLUTE EOSINOPHILS # (AUTO) 0.2 10^3/uL (0.0-0.6); ABSOLUTE LYMPHOCYTES (AUTO) 2.6 10^3/uL (0.5-4.7); ABSOLUTE MONOCYTES (AUTO) 0.4 10^3/uL (0.1-1.4); ABSOLUTE NEUT (AUTO) 6.2 10^3/uL (1.7-8.2); BASOPHILS % (AUTO) 0.6 % (0-2); EOSINOPHILS % (AUTO) 2.5 % (0-6); HEMATOCRIT 40.5 % (36.0-47.0); HEMOGLOBIN 14.3 g/dL (12.0-15.5); LYMPHOCYTES % (AUTO) 27.2 % (13-45); MEAN CORPUSCULAR HEMOGLOBIN 33.1 pg (27.0-33.4); MEAN CORPUSCULAR HGB CONC 35.3 g/dL (32.0-36.0); MEAN CORPUSCULAR VOLUME 94 fl (80-97); MONOCYTES % (AUTO) 4.4 % (3-13); PLATELET COUNT 324 10^3/uL (150-450); RED BLOOD COUNT 4.33 10^6/uL (3.72-5.28); RED CELL DISTRIBUTION WIDTH 12.4 % (11.5-14.0); SEGMENTED NEUTROPHILS % (AUTO) 65.3 % (42-78); TOTAL CELLS COUNTED % (AUTO) 100 %; WHITE BLOOD COUNT 9.4 10^3/uL (4.0-10.5)
[2020-04-14 10:54] LABS: ALBUMIN 4.3 g/dL (3.5-5.0); ALKALINE PHOSPHATASE 71 U/L (38-126); ANION GAP 5 (5-19); ASPARTATE AMINO TRANSFERASE 49 U/L (14-36); BILIRUBIN,DIRECT 0.1 mg/dL (0.0-0.4); BILIRUBIN,TOTAL 0.2 mg/dL (0.2-1.3); BLOOD UREA NITROGEN 8 mg/dL (7-20); CALCIUM 9.8 mg/dL (8.4-10.2); CARBON DIOXIDE 29 mmol/L (22-30); CHLORIDE 103 mmol/L (98-107); CREATINE KINASE 86 U/L (30-135); GLUCOSE 124 mg/dL (75-110); POTASSIUM 4.6 mmol/L (3.6-5.0); TOTAL PROTEIN 7.3 g/dL (6.3-8.2)
[2020-04-14 11:04] LABS: CREATINE KINASE MB 1.19 ng/mL (<4.55)
[2020-04-14 11:05] LABS: TROPONIN I < 0.012 ng/mL
--- NOTE | 2020-04-14 11:25 | RADIOLOGY REPORT (SQ) ---
EXAM DESCRIPTION: CHEST SINGLE VIEW IMAGES COMPLETED DATE/TIME: 04/14/2020 11:17 am REASON FOR STUDY: cp COMPARISON: 07/17/2018 EXAM PARAMETERS: NUMBER OF VIEWS: One view. TECHNIQUE: Single frontal radiographic view of the chest acquired. RADIATION DOSE: NA LIMITATIONS: None. FINDINGS: LUNGS AND PLEURA: No opacities, masses or pneumothorax. No pleural effusion. MEDIASTINUM AND HILAR STRUCTURES: No masses. Contour normal. HEART AND VASCULAR STRUCTURES: Heart normal in size. Normal vasculature. BONES: No acute findings. HARDWARE: None in the chest. OTHER: No other significant finding. IMPRESSION: NO ACUTE RADIOGRAPHIC FINDING IN THE CHEST. TECHNICAL DOCUMENTATION: JOB ID: [id number] 2010 [employer]- All Rights Reserved Reading location - IP/workstation name: [email or web address]
--- NOTE | 2020-04-14 11:46 | ER Document Report ---
ED General - General Chief Complaint: Shortness Of Breath Stated Complaint: CHEST TIGHTNESS Time Seen by Provider: 04/14/20 10:12 Mode of Arrival: Ambulatory TRAVEL OUTSIDE OF THE [place] IN LAST 30 DAYS: No - HPI Notes: Chief complaint: Chest tightness and wheezes History of present illness: 44-year-old female cigarette smoker with history of asthma presents for evaluation of chest tightness and worsening wheezing. Patient says she was exposed to an aerosol room deodorizer about 3 days ago with a heavy scent of potpourri. She indicates that such scents have triggered asthma exacerbations for her in the past. She is not on any long-term inhalers but uses a rescue inhaler as needed. She has been doing this without much improvement. She denies fever but has been coughing up some yellow sputum. No hemoptysis. Tightness in her chest and slight burning when she takes a deep breath. No history of thromboembolic disease. No history of CAD. She is a borderline diabetic. No history of hypertension. No history of hyperlipidemia. Only other medical condition for which she is regularly treated is hypothyroidism. Presently smoking about 5 cigarettes/day. Family history negative for CAD. HEART Score: HISTORY 0 ECG 0 AGE 2 RISK FACTORS 1 TROPONIN 0 TOTAL: 1 If HEART score is<3 AND both tronponin measurments are normal, the 30 day risk of a major adverse cardiac event (all-cause mortality, myocardia infarction or need for coronary revscularization) is < 1% (Sensitivity 100%, NPV 100%). - Related Data Allergies/Adverse Reactions: Potassium Clavulanate * [From Augmentin] Allergy (Severe, Verified 04/14/20 10:10) n and v amoxicillin trihydrate [From Augmentin] Allergy (Verified 04/14/20 10:10) n and v bee venom protein (honey bee) Allergy (Verified 04/14/20 10:10) hornet venom Allergy (Verified 04/14/20 10:10) etodolac [From Lodine] Adverse Reaction (Verified 04/14/20 10:10) rash levofloxacin [From Levaquin] Adverse Reaction (Verified 04/14/20 10:10) abd pain nitrofurantoin [From Macrobid] Adverse Reaction (Verified 04/14/20 10:10) chest tight sulfamethoxazole [From Bactrim] Adverse Reaction (Verified 04/14/20 10:10) rash trimethoprim [From Bactrim] Adverse Reaction (Verified 04/14/20 10:10) rash Past Medical History - General Information source: Patient, [facility] Records - Social History Smoking Status: Current Every Day Smoker Frequency of alcohol use: Rare Drug Abuse: None Lives with: Family Family History: Reviewed & Not Pertinent, CVA, DM, Hyperlipidemia, Hypertension, Malignancy, Thyroid Disfunction - Past Medical History Cardiac Medical History: Reports: None Pulmonary Medical History: Reports: Hx Asthma - inhalers Endocrine Medical History: Reports: Hx Diabetes Mellitus Type 2 - Diet controlled, Hx Hypothyroidism Renal/ Medical History: Reports: Hx Ovarian Cysts. Denies: Hx Peritoneal Dialysis Musculoskeletal Medical History: Reports Hx Musculoskeletal Trauma - Back injury in her youth Psychiatric Medical History: Reports: Hx Bipolar Disorder Past Surgical History: Reports: Hx Abdominal Surgery, Hx Appendectomy, Hx Gynecologic Surgery - left ovary removed., Hx Hysterectomy, Hx Oral Surgery, Hx Orthopedic Surgery - LEFT KNEE SURGERY, Hx Tonsillectomy - Immunizations Immunizations up to date: Yes Hx Diphtheria, Pertussis, Tetanus Vaccination: Yes Review of Systems - Review of Systems Notes: Constitutional: Negative for fever. HENT: Negative for sore throat. Eyes: Negative for visual changes. Cardiovascular: As per HPI. Respiratory: As per HPI. Gastrointestinal: Negative for abdominal pain, vomiting or diarrhea. Genitourinary: Negative for dysuria. Musculoskeletal: Negative for back pain. Skin: Negative for rash. Neurological: Negative for headaches, weakness or numbness. 10 point ROS negative except as marked above and in HPI. Physical Exam - Vital signs Vitals: Temp Pulse Resp BP Pulse Ox 98.1 F 93 16 136/73 H 97 04/14/20 09:57 04/14/20 09:57 04/14/20 09:57 04/14/20 09:57 04/14/20 09:57 - Notes Notes: GENERAL: Middle-age female appearing in no acute distress. SKIN: Good turgor no rashes. HEAD: Normocephalic atraumatic. EYES: PERRLA. EOMI. Conjunctivae and sclerae clear. EARS: CANALS AND TMS CLEAR. NOSE: CLEAR. MOUTH: Moist mucosa. Good dentition. No stridor or edema. No drooling. NECK: Supple. No masses or thyromegaly. No adenopathy. Carotids 2+ without bruits. No JVD. BACK: Symmetrical without tenderness. CHEST: Respirations unlabored. Diffuse scattered coarse rhonchi and expiratory wheezes bilaterally. HEART: Regular rhythm. No murmur gallop or rub. ABDOMEN: Soft nontender without masses, organomegaly or rebound. Bowel sounds normally active. No bruits. GENITALIA: Deferred. EXTREMITIES: No edema. No calf tenderness. Cap refill less than 1.5 seconds. Dorsalis pedis and posterior tibial pulses 3+ and symmetrical. NEUROLOGICAL: GCS 15. Alert and oriented x3. Normal gait. Fluent speech. Cranial nerves II through XII intact. Sensorimotor and cerebellar normal. Normal tone. PSYCHIATRIC: Appropriate affect. Course - Re-evaluation Re-evalutation: 04/14/20 15:35 Patient came in with what appeared to be primarily an acute exacerbation of her asthma probably set off by inhaling strong fumes from a room deodorizer. She had moderate bronchospasm when she came in but was oxygenating normally was hemodynamically stable. She complained of some tight sensation in her chest. This improved after she received nebulizer treatments and IV steroids. Her wheezes resolved. She remained stable. Troponin x2 3 hours apart negative. EKG showed no acute changes. She is a smoker and she has been coughing up green sputum for over a week. On this basis I think she probably needs some oral antibiotics as well as oral steroids and continued use of nebulizers. Strongly encouraged to stop smoking. We note that the patient had a negative Covid test last week. I did not repeat this today. Chest x-ray did not show any infiltrates on today's visit send her labs were otherwise unremarkable. Findings, clinical impression and plan of treatment have been discussed with patient/family. Understanding of current findings and recommendations has been acknowledged by them and there is agreement regarding disposition and follow-up. - Vital Signs Vital signs: Temp Pulse Resp BP Pulse Ox 98.1 F 93 15 136/73 H 96 04/14/20 09:57 04/14/20 09:57 04/14/20 12:00 04/14/20 09:57 04/14/20 12:00 - Laboratory Result Diagrams: 04/14/20 10:23 04/14/20 10:23 Laboratory results interpreted by me: 04/14/20 10:23 Glucose 124 H AST 49 H ALT 68 H - Diagnostic Test Radiology reviewed: Image reviewed, Reports reviewed Radiology results interpreted by me: 04/14/20 11:46 Chest X-Ray 04/14/20 11:04 IMPRESSION: NO ACUTE RADIOGRAPHIC FINDING IN THE CHEST. - EKG Interpretation by Me Additional EKG results interpreted by me: 04/14/20 11:47 Twelve-lead EKG reviewed by me contemporaneously: 0954 hrs. Indication for study: Chest tightness Rhythm: Normal sinus rhythm Rate: 92 Intervals: Intervals normal QRS axis: +[address]/T wave changes: None Comparison with prior tracing:unchanged compared with prior study 07/17/2018 Interpretation: Discharge - Discharge Clinical Impression: Asthma exacerbation Qualifiers: Asthma severity: moderate Asthma persistence: unspecified Qualified Code(s): J45.901 - Unspecified asthma with (acute) exacerbation Condition: Stable Disposition: HOME, SELF-CARE Prescriptions: Prednisone [Deltasone 20 mg Tablet] 2 tab PO DAILY 5 Days tablet Albuterol Sulfate [Proventil 0.5% Neb 2.5 mg/0.5 ml Vial.neb] 2.5 mg NEB QID 10 Days #30 vial.neb Azithromycin [Zithromax 250 mg Tablet] 250 mg PO ASDIR PRN #6 tablet PRN Reason: Forms: Smoking Cessation Education
[2020-04-14 15:50] VITALS: BP 97/54
--- NOTE | 2020-04-15 08:07 | EKG REPORT ---
SEVERITY:- ABNORMAL ECG - SINUS RHYTHM LEFT ATRIAL ABNORMALITY : Confirmed by: Corinna Jha 15-Apr-2020 08:06:44
== END 2020-04-14 15:50 | disposition home or self-care (01) ==
LOC: ER 09:48
DX: J45.901 Unspecified asthma with (acute) exacerbation (principal); R07.9 Chest pain, unspecified; E11.9 Type 2 diabetes mellitus without complications; F17.210 Nicotine dependence, cigarettes, uncomplicated
CPT/HCPCS: 93005; 94640; 99285; 96374; 36415; 82553; 80307; 82550; 84443; 85025; 80053; 84484; 71045; 93010; J2930